=== PATIENT | male | born 1935 | race Caucasian/White ===

== ENCOUNTER 2016-11-24 06:33 | Observation (INO) ==
[2016-11-24] MEDS ORDERED: Nitroglycerin 1 INCH/GM PACKET TP ONE (06:48)
[2016-11-24] MEDS ORDERED: Aspirin 325 MG TABLET PO ONE (06:48)
--- NOTE | 2016-11-24 06:48 | Emergency Department Note ---
Disposition Clinical Impression: Chest pain Qualifiers: Chest pain type: precordial chest pain Qualified Code(s): R07.2 - Precordial pain Disposition: Admitted As Inpatient Condition: Fair Referrals: Carter Martin MD [Primary Care Provider] - Forms: ED Satisfaction Letter Chest Pain HPI - General Chief Complaint: ED Chest Pain Stated Complaint: chest pain Time Seen by Provider: 11/24/16 06:37 Source: patient Mode of arrival: private vehicle Limitations: no limitations Vital Signs Reviewed: Yes Nursing Notes Reviewed: Yes - History of Present Illness HPI Narrative: Patient reports that he had a hard time going to sleep last night he slept in a recliner. States he woke this a.m. at 0545 with midsternal chest pain described as pressure that radiated to his back. He did take some nitroglycerin with attenuation of the pain and has come for evaluation by private auto. He states his pain is easing up but he still has a little bit of pressure in his chest. He has developed a headache with the nitroglycerin. He reports slight sweat and nausea with this without shortness of breath or vomiting. He also states he felt just a little dizzy. He denies any lower extremity swelling, immobilization or injury. He denies fevers, chills, cough or abdominal complaint. He does relate that he has a history of heart disease and feel like anginal pain. He states he has had a three-way coronary artery bypass graft in 1996. His also had a subsequent stent. He states he is followed by cardiology at [facility]. 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 Denies: vomiting, dyspnea, syncope, palpitations, fever, cough, leg swelling Treatments prior to arrival chest pain: nitroglycerin - Related Data Home Medications Medication Instructions Recorded Confirmed Atorvastatin [Lipitor] 40 mg PO HS 10/11/15 11/24/16 Budesonide/Formoterol 160/4.5 1 puff IH BIDR 10/11/15 11/24/16 [Symbicort 160/4.5] Finasteride [Proscar] 5 mg PO DAILY 10/11/15 11/24/16 Gemfibrozil [Lopid] 600 mg PO QAM 10/11/15 11/24/16 Glimepiride [Amaryl] 4 mg PO DAILY 10/11/15 11/24/16 Lansoprazole [Prevacid] 30 mg PO QAM 10/11/15 11/24/16 Montelukast [Singulair] 10 mg PO DAILY 10/11/15 11/24/16 Propranolol [Inderal] 20 mg PO QAM 10/11/15 11/24/16 Rivaroxaban [Xarelto] 20 mg PO QAM 10/11/15 11/24/16 Amitriptyline [Elavil] 10 mg PO HS 12/01/15 11/24/16 GuaiFENesin/Pseudophedrine 1 each PO BID 11/24/16 11/24/16 [Mucinex D] Previous Rx's Medication Instructions Recorded Cefuroxime Axetil [Ceftin] 500 mg PO BID #10 tablet 08/23/16 Cyanocobalamin (B-12) [Vitamin B12] 1,000 mcg PO DAILY #30 tablet 08/23/16 Ferrous Sulfate 325 mg PO DAILY #30 tablet 08/23/16 Lactobacillus [Culturelle] 1 each PO BID #10 cap.sprink 08/23/16 Allergies Allergy/AdvReac Type Severity Reaction Status Date / Time No Known Allergies Allergy Verified 10/11/15 19:31 All systems ED: reviewed and negative except as stated. Chest Pain PMH - Past Medical History Medical history: Reports: atrial fibrillation, COPD, coronary artery disease, CVA, diabetes, myocardial infarction, other Surgical history: Reports: angioplasty/stent, cholecystectomy, coronary bypass ( CABG) (1980 and 1996), herniorrhaphy, prostatectomy Psychiatric history: Reports: no psych history - Social History Smoking Status: Former smoker Alcohol use: Reports: none Drug use: Reports: none Physical Exam - General Limitations: no limitations General appearance: alert, in no apparent distress - Head Head exam: atraumatic, normocephalic, normal inspection - Eye Eye exam: Present: normal appearance, PERRL, EOMI. Absent: conjunctival injection - ENT ENT exam: normal exam, normal oropharynx, mucous membranes moist - Neck Neck exam: Present: normal inspection, full ROM, trachea midline. Absent: tenderness, lymphadenopathy - Chest Chest inspection: Present: normal inspection, symmetric chest wall rise. Absent : tenderness - Respiratory Respiratory exam: Present: normal lung sounds bilaterally. Absent: respiratory distress, wheezes, prolonged expiratory phase - Cardiovascular Cardiovascular exam: Present: regular rate, normal rhythm, normal heart sounds. Absent: tachycardia, irregular rhythm, JVD - Abdominal Exam Abdominal exam: Present: soft, Non-Tender, normal bowel sounds. Absent: tenderness, distention, guarding, rebound, rigidity, mass, bruit, pulsatile mass - Extremities Exam Extremities exam: Present: normal inspection, full ROM, normal capillary refill. Absent: tenderness, pedal edema, calf tenderness - Expanded Lower Extremity Exam Neurovascular/Tendon exam: Present: normal capillary refill. Absent: motor deficit, sensory deficit, tendon deficit Gait: observed and normal - Back Exam Back exam: Present: normal inspection, full ROM. Absent: tenderness - Neurological Exam Neurological exam: Present: alert, oriented X3 - Psychiatric Psychiatric exam: Present: normal affect, normal mood - Skin Skin exam: Present: warm, dry, intact, normal color Course Course Narrative: 0658: [facility] has been contacted to assess bed availability at [place]. He has been advised that there is a significant recent bed shortage. 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 0710: [place] his call back to advise that they have no beds at [facility]. Their earliest available bed would be later this afternoon. 0730: There is no bed availability at [facility]. They are advised there is a possibility of beds becoming available in the afternoon. 0750: Dr. Cole has been contacted and has accepted this patient for observation at this facility. I have contacted to [place] to advise that he does wish to have her call him a bed becomes available and he will decide on the need for transfer at that time. 0808: [facility] bed management contacted for bed placement. Vital Signs Temperature 97.8 F 11/24/16 06:34 Pulse Rate 82 11/24/16 06:34 Respiratory Rate 18 11/24/16 06:34 Blood Pressure 197/94 11/24/16 06:34 O2 Sat by Pulse Oximetry 94 L 11/24/16 06:34 Temperature 97.8 F 11/24/16 06:40 Pulse Rate 84 11/24/16 07:36 Respiratory Rate 16 11/24/16 07:36 Blood Pressure 150/78 11/24/16 07:36 O2 Sat by Pulse Oximetry 94 L 11/24/16 07:36 Oxygen Delivery Oxygen Delivery Room Air Chest Pain - Differential Diagnosis Likely: unstable angina pectoris, atypical chest pain, costalchondritis, chest pain - Medical Records Medical records reviewed: Yes I reviewed the patient's medical records. - Lab Data Lab results reviewed: Yes I reviewed the patient's lab results. Result diagrams: 11/24/16 06:45 11/24/16 06:45 Lab Results 11/24/16 11/24/16 11/24/16 Range/Units 06:45 06:45 06:45 WBC 6.6 (4.3-11.1) K/mcL RBC 5.28 (4.19-5.50) M/mcL Hgb 14.5 (12.9-16.9) g/dL Hct 44.6 (37.5-50.1) % MCV 84.5 (83.0-100.0) fL MCH 27.5 L (28.0-33.3) pg MCHC 32.5 (31.6-35.5) g/dL RDW 14.2 (11.5-14.5) % Plt Count 195 (140-400) K/mcL MPV 9.2 L (9.4-12.4) fL Immature Gran % 0.5 (0-4) % Seg Neutrophils % 62.8 % Lymphocytes % 24.7 % Monocytes % 10.0 % Eosinophils % 1.5 % Basophils % 0.5 % Neutrophils # 4.2 (1.6-8.9) K/mcL Lymphocytes # 1.6 (0.6-4.6) K/mcL Monocytes # 0.7 (0.0-1.3) K/mcL Eosinophils # 0.1 (0.0-0.6) K/mcL Basophils # 0.0 (0.0-0.2) K/mcL PT 26.2 H (9.4-12.1) Seconds INR 2.4 APTT 43.4 H (26.0-36.0) Seconds Sodium (136-145) mEq/L Potassium (3.5-4.5) mEq/L Chloride (98-109) mEq/L Carbon Dioxide (19-29) mEq/L BUN (8-26) mg/dL Creatinine (0.72-1.25) mg/dL Est GFR ( Amer) (> 60) Est GFR (Non-Af Amer) (> 60) BUN/Creatinine Ratio (6-26) Glucose (70-99) mg/dL Calculated Osmolality (280-300) Calcium (8.6-10.8) mg/dL Troponin I (0-0.03) ng/mL B-Natriuretic Peptide 86 (0-100) pg/mL 11/24/16 11/24/16 Range/Units 06:45 06:45 WBC (4.3-11.1) K/mcL RBC (4.19-5.50) M/mcL Hgb (12.9-16.9) g/dL Hct (37.5-50.1) % MCV (83.0-100.0) fL MCH (28.0-33.3) pg MCHC (31.6-35.5) g/dL RDW (11.5-14.5) % Plt Count (140-400) K/mcL MPV (9.4-12.4) fL Immature Gran % (0-4) % Seg Neutrophils % % Lymphocytes % % Monocytes % % Eosinophils % % Basophils % % Neutrophils # (1.6-8.9) K/mcL Lymphocytes # (0.6-4.6) K/mcL Monocytes # (0.0-1.3) K/mcL Eosinophils # (0.0-0.6) K/mcL Basophils # (0.0-0.2) K/mcL PT (9.4-12.1) Seconds INR APTT (26.0-36.0) Seconds Sodium 141 (136-145) mEq/L Potassium 3.8 (3.5-4.5) mEq/L Chloride 102 (98-109) mEq/L Carbon Dioxide 28 (19-29) mEq/L BUN 7 L (8-26) mg/dL Creatinine 0.74 (0.72-1.25) mg/dL Est GFR ( Amer) > 60 (> 60) Est GFR (Non-Af Amer) > 60 (> 60) BUN/Creatinine Ratio 9 (6-26) Glucose 112 H (70-99) mg/dL Calculated Osmolality 291 (280-300) Calcium 9.3 (8.6-10.8) mg/dL Troponin I 0.02 (0-0.03) ng/mL B-Natriuretic Peptide (0-100) pg/mL - Radiology Data Radiology results reviewed: Yes I reviewed the patient's radiology results. Single view chest x-ray is performed. This does not demonstrate evidence for infiltrate, effusion or pneumothorax. Patient has some patchy increased interstitial markings consistent with possible edema. The cardiac silhouette is enlarged. I do not see abnormality to the osseous structures of the chest. This is on my interpretation. Impressions Chest X-Ray 11/24/16 06:40 IMPRESSION: Mild cardiomegaly without evidence of acute cardiopulmonary process. D/ / 11/24/2016 07:26:04 Dorian Singleton MD / [email or web address] Interpreting Provider: Dorian Singleton MD - EKG Data EKG attestation: Yes I reviewed and interpreted this EKG. EKG shows normal: sinus rhythm, intervals, QRS complexes, ST-T waves [place]/QRS: left axis deviation Interpretation: no acute changes
[2016-11-24 06:51] LABS: Basophils % 0.5 %; Eosinophils # 0.1 K/mcL (0.0-0.6); Eosinophils % 1.5 %; Hematocrit 44.6 % (37.5-50.1); Hemoglobin 14.5 g/dL (12.9-16.9); Immature Granulocytes % 0.5 % (0-4); Lymphocytes # 1.6 K/mcL (0.6-4.6); Lymphocytes % 24.7 %; Mean Corpuscular HGB Conc 32.5 g/dL (31.6-35.5); Mean Corpuscular Hemoglobin 27.5 pg (28.0-33.3); Mean Corpuscular Volume 84.5 fL (83.0-100.0); Mean Platelet Volume 9.2 fL (9.4-12.4); Monocytes # 0.7 K/mcL (0.0-1.3); Neutrophils # 4.2 K/mcL (1.6-8.9); Platelet Count 195 K/mcL (140-400); Red Blood Count 5.28 M/mcL (4.19-5.50); Red Cell Distribution Width 14.2 % (11.5-14.5); Segmented Neutrophils % 62.8 %
[2016-11-24 06:58] LABS: INR 2.4
[2016-11-24 07:01] LABS: Activated Partial Thrombo Time 43.4 Seconds (26.0-36.0)
[2016-11-24 07:05] LABS: BUN/Creatinine Ratio 9 (6-26); Blood Urea Nitrogen 7 mg/dL (8-26); Calcium 9.3 mg/dL (8.6-10.8); Carbon Dioxide 28 mEq/L (19-29); Chloride 102 mEq/L (98-109); Glucose 112 mg/dL (70-99); Osmolality,Calculated 291 (280-300); Potassium 3.8 mEq/L (3.5-4.5); Sodium 141 mEq/L (136-145); eGFR For African Americans > 60 (> 60); eGFR For Non-African Americans > 60 (> 60)
[2016-11-24 07:23] LABS: Prothrombin Time 26.2 Seconds (9.4-12.1)
[2016-11-24] MEDS ORDERED: *HR* Dextrose 50 % in Water (Syg) 50 ML SYRINGE IVP PRN (10:34)
[2016-11-24] MEDS ORDERED: GuaiFENesin/Pseudophedrine TABLET PO SCH (10:34)
[2016-11-24] MEDS ORDERED: Lactobacillus 1 EACH CAP.SPRINK PO SCH (10:34)
[2016-11-24] MEDS ORDERED: D5% in Water 1,000 ML IV PRN (10:34)
[2016-11-24] MEDS ORDERED: Finasteride 5 MG TABLET PO SCH (10:34)
[2016-11-24] MEDS ORDERED: Acetaminophen 325 MG TABLET PO PRN (10:34)
[2016-11-24] MEDS ORDERED: *HR* Glimepiride 2 MG TABLET PO SCH (10:34)
[2016-11-24] MEDS ORDERED: *HR* Rivaroxaban 10 MG TABLET PO SCH ×2 (10:34→21:00)
[2016-11-24] MEDS ORDERED: MOM Conc 10 ML UD.LIQ PO PRN (10:34)
[2016-11-24] MEDS ORDERED: Ondansetron 4 MG/2 ML VIAL IVP PRN (10:34)
[2016-11-24] MEDS ORDERED: Naloxone 0.4 MG/ML INJ IVP PRN (10:34)
[2016-11-24] MEDS ORDERED: Dextrose Gel 15 GM PO PRN ×2 (10:34)
[2016-11-24] MEDS ORDERED: Cefuroxime PO 250 MG TABLET PO SCH (10:34)
[2016-11-24] MEDS ORDERED: Cyanocobalamin (B-12) 1,000 MCG TABLET PO SCH (10:34)
[2016-11-24] MEDS ORDERED: Budesonide/Formoterol 160/4.5 MDI IH SCH (10:34)
[2016-11-24] MEDS: Insulin LISPRO 300 UNITS/3 ML VIAL SQ SCH ×2 (13:11→17:56)
--- NOTE | 2016-11-24 13:28 | Electrocardiograph Report ---
[facility] Test Date: 2016-11-24 Pat Name: Rene Ogden Department: [id number] Room: [facility] Gender: M Family Readiness Support Assistant: [id number] : 1935 Requested By: Matteo Aranda Order Number: [id number] Reading MD: Denise Guo Measurements Intervals [place] Rate: 85 P: 76 VT: 199 QRS: -31 QRSD: 84 T: 76 QT: 346 QTc: 388 Interpretive Statements SINUS RHYTHM MARKED LEFT AXIS DEVIATION NONSPECIFIC T-WAVE ABNORMALITY Electronically Signed On 11-24-16 13:26:47 EST by Denise Guo
--- NOTE | 2016-11-24 14:39 | Internal Med History&Physical ---
Date of Encounter: 11/24/16 Time of Encounter: 14:05 Assessment and Plan (1) Chest pain Current visit: Yes Status: Acute He has been admitted to [facility] floor observation status. Aspirin was given in the emergency room. Nitropaste has been ordered. Contact has been made from emergency room with [facility] for transfer when a bed is available. Repeat cardiac enzymes will be done. Qualifiers: Chest pain type: precordial chest pain Qualified Code(s): R07.2 - Precordial pain Internal Medicine - H&P: HPI Chief complaint: Chest tightness Admitted From: Home Plans for Post Hospital Care: Home History of present illness: Mr. Ogedn is a 81 year old male who came to the emergency room stating he had chest tightness onset earlier at home while in bed. He describes the tightness as being similar to previous anginal episodes. He took a nitroglycerin pill with some relief. He was evaluated in emergency room and felt to deserve admission to [facility]. He states the frequency and severity of the episodes of chest tightness have increased over the last 2 months. He has not spoken to his primary care physician or cable operator about the increased episodes. He has not missed any doses of his medications. His cardiovascular history is significant for known ASHD status post 3 vessel CABG 1980 and 4 vessel CABG 1996. He had PTCA with single stent placed at his most recent heart catheter 2005. He is not on antiplatelet agents. He has history of atrial fib/flutter and was cardioverted October 2015 at [facility] and has been maintained on Xarelto. He has remained in normal sinus rhythm. He had a left carotid endarterectomy in 2014. He denies hypertension [place] heart failure DVT or pulmonary embolus. Past Med Surg Social Fam HX - Past Medical History Medical history: atrial fibrillation, COPD, coronary artery disease, CVA, diabetes, myocardial infarction, other Psychiatric history: no psych history - Past Surgical History Surgical History: angioplasty/stent, cholecystectomy, coronary bypass (CABG), herniorrhaphy, prostatectomy - Social History Smoking Status: Former smoker Smokeless Tobacco Status: No Alcohol use: none Drug use: none - Family History Mother Living Status: Hx Family Cardiac Disorders: Yes Internal Medicine - H&P: Meds Atorvastatin [Lipitor] 40 mg PO HS 10/11/15 [History] Budesonide/Formoterol 160/4.5 [Symbicort 160/4.5] 1 puff IH BIDR 10/11/15 [ History] Finasteride [Proscar] 5 mg PO DAILY 10/11/15 [History] Gemfibrozil [Lopid] 600 mg PO QAM 10/11/15 [History] Glimepiride [Amaryl] 4 mg PO DAILY 10/11/15 [History] Lansoprazole [Prevacid] 30 mg PO QAM 10/11/15 [History] Montelukast [Singulair] 10 mg PO DAILY 10/11/15 [History] Propranolol [Inderal] 20 mg PO QAM 10/11/15 [History] Rivaroxaban [Xarelto] 20 mg PO QAM 10/11/15 [History] Amitriptyline [Elavil] 10 mg PO HS 12/01/15 [History] Cefuroxime Axetil [Ceftin] 500 mg PO BID #10 tablet 08/23/16 [Rx] Cyanocobalamin (B-12) [Vitamin B12] 1,000 mcg PO DAILY #30 tablet 08/23/16 [Rx] Ferrous Sulfate 325 mg PO DAILY #30 tablet 08/23/16 [Rx] Lactobacillus [Culturelle] 1 each PO BID #10 cap.sprink 08/23/16 [Rx] GuaiFENesin/Pseudophedrine [Mucinex D] 1 each PO BID 11/24/16 [History] Allergies No Known Allergies Allergy (Verified 10/11/15 19:31) All Systems PM: A 10-system review of systems was performed and is negative for pertinent findings except as documented above in the HPI. Review of systems: Gen.: His weight has been stable since the November 2015 [facility] hospitalization at approximately 96 kg. Cardiovascular: As per history of present illness Respiratory: He smoked from age [age] up to 2 packs per day. He has oxygen at home but does not wear it regularly. He had pulmonary function tests December 2015 which showed severe COPD. FEV1/FVC was 50%. His FEV1 had significant improvement postbronchodilator. He had elevated RV consistent with air trapping. His DLCO was 28% corrected. GI: He has had cholecystectomy. He has GERD but denies disorders of his liver or exocrine pancreas : He has had stones in his kidney and bladder in the past. He has BPH. 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 He denies other large distribution strokes or seizures. He has benign essential tremor. Endocrine: He was diagnosed with DM 2 approximately 1984. Hemoglobin A1c was 8.0% November 2015. He has hyperlipidemia but no known thyroid disease Hematology/oncology: He denies blood disorders cancers or anemia Psychiatric: Denies anxiety depression or other mental health issues [place] skeletal: Has history of gout but denies other bone joint or muscle disorders. - Constitutional Vitals: Temp Pulse Resp BP Pulse Ox 98.2 F 75 14 154/70 95 11/24/16 11:01 11/24/16 11:01 11/24/16 12:09 11/24/16 11:01 11/24/16 12:09 Exam: Gen.: He is a well-developed well-nourished male who appears in no severe distress at present time. He denies chest discomfort at this time HEENT: Head is atraumatic and normocephalic. Eyes: EOMI. There is no scleral icterus. Mouth: Mucosa is moist. Neck: Supple and nontender. There is no thyromegaly or adenopathy noted. Heart: Regular without murmurs gallops or ectopics. Lungs: No wheezes or crackles heard. Abdomen: Soft and nontender. No masses or guarding are noted. Extremities: There is no cyanosis edema or clubbing noted. Dorsalis pedis and posterior tibial pulses are rates to 1+ palpable bilaterally. Neurologic: Mental status: He is talkative and a good historian. Cranial nerves : Smile is symmetric. Forehead wrinkles bilaterally. Tongue protrudes midline. EOMI. Motor: There is no pronator drift. Cerebellar: Finger to nose is intact bilaterally. Skin: Warm and dry. Internal Med - H&P Results - Labs CBC & Chem 7: 11/24/16 06:45 11/24/16 06:45
[2016-11-24 18:41] VITALS: BP 170/72
--- NOTE | 2016-11-25 12:15 | Discharge Summary ---
Date of Encounter: 11/25/16 Time of Encounter: 12:13 - Discharge Diagnosis (1) Chest pain Priority: Primary Status: Acute Qualifiers: Chest pain type: precordial chest pain Qualified Code(s): R07.2 - Precordial pain - Discharge Medications Home Medications: Atorvastatin [Lipitor] 40 mg PO HS 10/11/15 [History] Budesonide/Formoterol 160/4.5 [Symbicort 160/4.5] 1 puff IH BIDR 10/11/15 [ History] Finasteride [Proscar] 5 mg PO DAILY 10/11/15 [History] Gemfibrozil [Lopid] 600 mg PO QAM 10/11/15 [History] Glimepiride [Amaryl] 4 mg PO DAILY 10/11/15 [History] Lansoprazole [Prevacid] 30 mg PO QAM 10/11/15 [History] Montelukast [Singulair] 10 mg PO DAILY 10/11/15 [History] Propranolol [Inderal] 20 mg PO QAM 10/11/15 [History] Rivaroxaban [Xarelto] 20 mg PO QAM 10/11/15 [History] Amitriptyline [Elavil] 10 mg PO HS 12/01/15 [History] Cefuroxime Axetil [Ceftin] 500 mg PO BID #10 tablet 08/23/16 [Rx] Cyanocobalamin (B-12) [Vitamin B12] 1,000 mcg PO DAILY #30 tablet 08/23/16 [Rx] Ferrous Sulfate 325 mg PO DAILY #30 tablet 08/23/16 [Rx] Lactobacillus [Culturelle] 1 each PO BID #10 cap.sprink 08/23/16 [Rx] GuaiFENesin/Pseudophedrine [Mucinex D] 1 each PO BID 11/24/16 [History] Allergies/Adverse Reactions: Allergies No Known Allergies Allergy (Verified 10/11/15 19:31) Date of admission: 11/24/16 08:49 Primary care physician: Carter Martin MD Consults: 11/24/16 12:51 Consult to Waste Collection Driver [CONS] Routine Reason for SW Consult: financial concerns - Patient Status Disposition: Transfer Critical Access Hosp Condition: Fair - Discharge Instructions Follow Up With: Carter Martin MD [Primary Care Provider] - 1 week Hospital course: Mr. Ogden is a 81 year old male who came to the emergency room stating he had chest tightness onset earlier at home while in bed. He describes the tightness as being similar to previous anginal episodes. He took a nitroglycerin pill with some relief. He was evaluated in emergency room and felt to deserve admission to [facility]. Initial orders were written by the emergency room physician. I saw him on November 24 and performed a history and physical. Repeat cardiac enzymes showed no evidence of myocardial damage. I felt his chest pain was likely due to myocardial ischemia. Notification was received the late afternoon of November 24 that a bed was available at [facility] for [facility]. He will be transferred there for further evaluation and treatment. - Time Spent with Patient Total time spent providing and/or coordinating discharge services: - Constitutional Vitals: Temp Pulse Resp BP Pulse Ox 97.9 F 64 18 170/72 92 L 11/24/16 18:36 11/24/16 18:36 11/24/16 18:36 11/24/16 18:36 11/24/16 18:36
== END 2016-11-24 19:39 | disposition short-term general hospital (02) ==
LOC: EMEROOPIK 06:33 → INPPIK 06:33
PROVIDERS: ADMIT Internal Medicine; ATTEND Internal Medicine

== ENCOUNTER 2018-05-24 14:03 | Observation (INO) ==
[2018-05-24] MEDS ORDERED: methylPREDNISolone 125 MG/2 ML VIAL IVP ONE (14:35)
[2018-05-24] MEDS ORDERED: Albuterol 2.5 MG/3 ML NEBULIZER IH ONE (14:35)
--- NOTE | 2018-05-24 14:37 | Emergency Department Note ---
Disposition Clinical Impression: COPD (chronic obstructive pulmonary disease) with acute bronchitis Pneumonia Qualifiers: Pneumonia type: due to unspecified organism Laterality: left Lung location: lower lobe of lung Qualified Code(s): J18.1 - Lobar pneumonia, unspecified organism Disposition: Admitted As Inpatient Condition: Undetermined Time of Disposition: 15:30 (Dr Cole accepted him) SOB HPI - General Chief Complaint: ED Shortness of Breath/Dyspnea Stated Complaint: cough, h/o pneumonia Source: patient, family Limitations: no limitations - History of Present Illness Patient is a pleasant with past medical history significant for HTN, CAD, CABG , several stents, Dyslipidemia and COPD recent Dx of PNE who is presenting to [facility] Emergency Room with a chief complaint off SOB and cough as well as LE swelling. His PCP Dr Ulrich was concerned about CHF exacerbation so he prompted him to be eval at the ER. Pt is taking Doxycycline and steroids. He states that the cough is with clear phlegm and the attacks come in clusters and wouldnt stop that makes him tired. He denies CP but has tightness. He has weakness but no other symptoms. Patient denies any fever or chills. Pt also denies any eye pain or visual disturbances. There is no sore throat or facial or nasal congestion. There is no racing heat. There is no abdominal pain, nausea, vomiting or diarrhea. No dysuria or flank pain. There is no muskulo- skeletal pain, arthralgia or back pain. Patient also denies rash or pruritus. There is no neurological manifestations, no headache, no vertigo or weakness but FATIGUED. The patient also denies any depression, hallucinations and there are no homicidal or suicidal ideations. There is no polyuria or polydipsia. There is no easy bruising or bleeding. Review of other systems is otherwise negative except above. Pt Subjective Complaint: shortness of breath, cough, pain with inspiration Onset (ago): day(s) Context: recent illness Severity: moderate Consistency/Duration: intermittent Improves with: rest, bronchodilators Known history of: COPD - Related Data Home Medications Medication Instructions Recorded Confirmed Atorvastatin [Lipitor] 40 mg PO HS 10/11/15 05/24/18 Finasteride [Proscar] 5 mg PO DAILY 10/11/15 05/24/18 Glimepiride [Amaryl] 4 mg PO DAILY 10/11/15 05/24/18 Montelukast [Singulair] 10 mg PO DAILY 10/11/15 05/24/18 Clopidogrel [Plavix] 75 mg PO DAILY 07/15/17 05/24/18 Nitroglycerin [Nitrostat] 0.4 mg PO Q5-6MIN PRN 07/15/17 05/24/18 Roflumilast [Daliresp] 500 mcg PO DAILY 07/15/17 05/24/18 Oxygen 1 each .ROUTE AD PRN 10/21/17 05/24/18 Aspirin [Lo-Dose Aspirin EC] 81 mg PO DAILY 03/02/18 05/24/18 Budesonide/Formoterol 160/4.5 2 puff IH BIDR 03/02/18 05/24/18 [Symbicort 160/4.5] Furosemide [Lasix] 40 mg PO DAILY 03/02/18 05/24/18 Guaifenesin [Mucinex] 600 mg PO Q12H 03/02/18 05/24/18 Insulin NPH Hum/Reg Insulin Hm 10 unit SQ BID 03/02/18 05/24/18 [Humulin 70/30 Kwikpen] Omeprazole [PriLOSEC] 20 mg PO DAILY 03/02/18 05/24/18 Potassium Chloride 20 meq PO DAILY 03/02/18 05/24/18 Sotalol [Betapace] 80 mg PO Q12HR 03/02/18 05/24/18 Doxycycline 100 mg PO BID 05/24/18 05/24/18 Dulera 200 Mcg/5 Mcg Inhaler 05/24/18 OXcarbazepine [Trileptal] 150 mg PO BID 05/24/18 05/24/18 Quetiapine Fumarate [SEROquel] 25 mg PO HS 05/24/18 05/24/18 clonazePAM [Clonazepam] 0.25 mg PO BID 05/24/18 05/24/18 predniSONE [PredniSONE] 10 mg PO DAILY 05/24/18 05/24/18 Allergies Allergy/AdvReac Type Severity Reaction Status Date / Time No Known Allergies Allergy Verified 05/14/18 16:07 All systems ED: reviewed and negative except as stated. Review of Systems: As Per HPI Constitutional: Denies: fever, chills, weakness Eyes: Denies: eye pain, eye discharge, vision change ENT ED: Denies: ear pain, throat pain, dental pain Cardiovascular: Reports: dyspnea on exertion. Denies: chest pain, palpitations Respiratory: Reports: cough, dyspnea, wheezes Gastrointestinal: Denies: abdominal pain, nausea, vomiting Genitourinary: Denies: urgency, dysuria, frequency Musculoskeletal: Denies: back pain, neck pain, joint swelling Past Medical History - Past Medical History Medical history: Reports: COPD, coronary artery disease, CVA, diabetes, GERD, hyperlipidemia, hypertension Surgical history: Reports: angioplasty/stent, cholecystectomy, coronary bypass ( CABG), herniorrhaphy, prostatectomy Psychiatric history: Reports: anxiety - Social History Smoking Status: Never smoker Smokeless Tobacco Status: No Alcohol use: Reports: none Drug use: Reports: none Physical Exam - General Limitations: no limitations General appearance: alert, in no apparent distress - Head Head exam: atraumatic, normocephalic, normal inspection - Eye Eye exam: Present: normal appearance, PERRL, EOMI - Expanded Eye Exam Pupils: Left: reactive - ENT ENT exam: normal exam, normal oropharynx, mucous membranes moist - Expanded ENT Exam External ear exam: Present: normal external inspection Mouth exam: Present: normal external inspection Teeth exam: Present: normal inspection Throat exam: Present: normal inspection - Neck Neck exam: Present: normal inspection, full ROM, trachea midline - Chest Chest inspection: Present: normal inspection, symmetric chest wall rise - Respiratory Respiratory exam: Present: normal lung sounds bilaterally, wheezes, prolonged expiratory phase, other (Scattered rhonchi and wheezes especially on the posterior lobes) - Cardiovascular Cardiovascular exam: Present: regular rate, normal rhythm, normal heart sounds - Abdominal Exam Abdominal exam: Present: soft, Non-Tender. Absent: tenderness, distention, guarding, rebound, rigidity - Extremities Exam Extremities exam: Present: normal inspection, full ROM. Absent: tenderness, pedal edema - Expanded Upper Extremity Exam Shoulder exam: Present: normal inspection, full ROM Arm exam: Present: normal inspection, full ROM Elbow exam: Present: normal inspection, full ROM Forearm/Wrist exam: Present: normal inspection, full ROM Hand exam: Present: normal inspection, full ROM Vascular exam: Normal: capillary refill, radial pulse - Expanded Lower Extremity Exam Hip/Pelvis exam: Present: normal inspection, full ROM Upper leg exam: Present: normal inspection, full ROM Knee exam: Present: normal inspection, full ROM Lower leg exam: Present: normal inspection, full ROM Ankle exam: Present: normal inspection, full ROM Foot/toe exam: Present: normal inspection, full ROM, swelling, other (Pedal edema extending to the mid leg) Neurovascular/Tendon exam: Absent: motor deficit, sensory deficit, tendon deficit - Back Exam Back exam: Present: normal inspection, full ROM. Absent: tenderness - Neurological Exam Neurological exam: Present: alert, oriented X3 - Expanded Neurological Exam Patient oriented to: Present: person, place, time Coma Scale Eye Opening: Spontaneous Coma Scale Motor Response: Obeys Commands Coma Scale Verbal Response: Oriented Coma Scale Total: 15 - Psychiatric Psychiatric exam: Present: normal affect, normal mood - Skin Skin exam: Present: warm, dry, intact, normal color Course Course Narrative: Cardiopulmonary monitoring Stat DuoNeb Stat steroids Stat a cappella/ chest physiotherapy STAT Ceftriaxone and Zithromax Vital Signs Temperature 97.7 F 05/24/18 14:05 Pulse Rate 57 05/24/18 14:05 Respiratory Rate 19 05/24/18 14:05 Blood Pressure 153/74 05/24/18 14:05 O2 Sat by Pulse Oximetry 95 05/24/18 14:05 Temperature 97.7 F 05/24/18 14:05 Pulse Rate 54 05/24/18 15:16 Respiratory Rate 18 05/24/18 15:16 Blood Pressure 151/67 05/24/18 15:16 O2 Sat by Pulse Oximetry 94 05/24/18 15:16 Oxygen Delivery Oxygen Delivery Room Air Shortness of Breath/Dyspnea - Differential Diagnosis Likely: congestive heart failure, pneumonia, asthma with exacerbation, pneumothorax - Medical Records Medical records reviewed: Yes I reviewed the patient's medical records. - Lab Data Lab results reviewed: Yes I reviewed the patient's lab results. Result diagrams: 05/24/18 14:55 05/24/18 14:55 Lab Results 05/24/18 05/24/18 05/24/18 Range/Units 14:55 14:55 14:55 WBC 10.5 (4.3-11.1) K/mcL RBC 5.53 H (4.19-5.50) M/mcL Hgb 14.3 (12.9-16.9) g/dL Hct 45.1 (37.5-50.1) % MCV 81.6 L (83.0-100.0) fL MCH 25.9 L (28.0-33.3) pg MCHC 31.7 (31.6-35.5) g/dL RDW 15.6 H (11.5-14.5) % Plt Count 260 (140-400) K/mcL MPV 9.3 L (9.4-12.4) fL Immature Gran % 1.0 (0-4) % Seg Neutrophils % 69.4 % Lymphocytes % 18.9 % Monocytes % 9.8 % Eosinophils % 0.7 % Basophils % 0.2 % Neutrophils # 7.3 (1.6-8.9) K/mcL Lymphocytes # 2.0 (0.6-4.6) K/mcL Monocytes # 1.0 (0.0-1.3) K/mcL Eosinophils # 0.1 (0.0-0.6) K/mcL Basophils # 0.0 (0.0-0.2) K/mcL PT (9.4-12.1) Seconds INR APTT (26.0-36.0) Seconds Sample Site ABG pH (7.32-7.45) pH Units ABG pCO2 (35-45) mmHg ABG pO2 (85-104) mmHg ABG HCO3 (21-27) mEq/L ABG Total CO2 (20-26) mEq/L ABG O2 Saturation (95-98) % ABG Base Excess (-2 to 3) mEq/L Louis Test O2 Delivery Device Sodium 136 (136-145) mEq/L Potassium 3.8 (3.5-5.1) mEq/L Chloride 97 L (98-107) mEq/L Carbon Dioxide 33 H (23-29) mEq/L BUN 13 (8-23) mg/dL Creatinine 0.79 (0.70-1.30) mg/dL Est GFR ( Amer) > 60 (> 60) Est GFR (Non-Af Amer) > 60 (> 60) BUN/Creatinine Ratio 16 (6-26) Glucose 200 H (70-105) mg/dL Calculated Osmolality 288 (280-300) Lactic Acid 3.0 H (0.5-2.2) mmol/L Calcium 9.0 (8.6-10.3) mg/dL Total Bilirubin 0.5 (0.3-1.0) mg/dL Direct Bilirubin 0.0 (0.0-0.2) mg/dL Indirect Bilirubin 0.5 (0.0-1.2) mg/dL AST 14 (13-39) Units/L ALT 18 (7-52) Units/L Alkaline Phosphatase 81 (34-104) Units/L Troponin I < 0.03 (< 0.04) ng/mL B-Natriuretic Peptide (Less than 100) pg/mL Serum Total Protein 6.1 L (6.4-8.9) g/dL Albumin 3.5 (3.5-5.7) g/dL Globulin 2.6 (2.4-3.5) g/dL Albumin/Globulin Ratio 1.3 (1.1-2.2) Urine Color (Yellow) Urine Clarity (Clear) Urine pH (5.0-8.0) pH Units Ur Specific [place] (1.010-1.025) Urine Protein (Neg-Trace) mg/dL Urine Glucose (UA) (Normal) mg/dL Urine Ketones (Negative) mg/dL Urine Blood (Negative) Urine Nitrite (Negative) Urine Bilirubin (Negative) Urine Urobilinogen (Normal) mg/dL Ur Leukocyte Esterase (Negative) Ur Culture Indicated? (NO) 05/24/18 05/24/18 05/24/18 Range/Units 14:55 14:55 15:05 WBC (4.3-11.1) K/mcL RBC (4.19-5.50) M/mcL Hgb (12.9-16.9) g/dL Hct (37.5-50.1) % MCV (83.0-100.0) fL MCH (28.0-33.3) pg MCHC (31.6-35.5) g/dL RDW (11.5-14.5) % Plt Count (140-400) K/mcL MPV (9.4-12.4) fL Immature Gran % (0-4) % Seg Neutrophils % % Lymphocytes % % Monocytes % % Eosinophils % % Basophils % % Neutrophils # (1.6-8.9) K/mcL Lymphocytes # (0.6-4.6) K/mcL Monocytes # (0.0-1.3) K/mcL Eosinophils # (0.0-0.6) K/mcL Basophils # (0.0-0.2) K/mcL PT 11.4 (9.4-12.1) Seconds INR 1.0 APTT 29.6 (26.0-36.0) Seconds Sample Site R Radial ABG pH 7.45 (7.32-7.45) pH Units ABG pCO2 46 H (35-45) mmHg ABG pO2 64 L (85-104) mmHg ABG HCO3 32 H (21-27) mEq/L ABG Total CO2 33 H (20-26) mEq/L ABG O2 Saturation 93 L (95-98) % ABG Base Excess 7 H (-2 to 3) mEq/L Louis Test Positive O2 Delivery Device Room Air Sodium (136-145) mEq/L Potassium (3.5-5.1) mEq/L Chloride (98-107) mEq/L Carbon Dioxide (23-29) mEq/L BUN (8-23) mg/dL Creatinine (0.70-1.30) mg/dL Est GFR ( Amer) (> 60) Est GFR (Non-Af Amer) (> 60) BUN/Creatinine Ratio (6-26) Glucose (70-105) mg/dL Calculated Osmolality (280-300) Lactic Acid (0.5-2.2) mmol/L Calcium (8.6-10.3) mg/dL Total Bilirubin (0.3-1.0) mg/dL Direct Bilirubin (0.0-0.2) mg/dL Indirect Bilirubin (0.0-1.2) mg/dL AST (13-39) Units/L ALT (7-52) Units/L Alkaline Phosphatase (34-104) Units/L Troponin I (< 0.04) ng/mL B-Natriuretic Peptide 110 H (Less than 100) pg/mL Serum Total Protein (6.4-8.9) g/dL Albumin (3.5-5.7) g/dL Globulin (2.4-3.5) g/dL Albumin/Globulin Ratio (1.1-2.2) Urine Color (Yellow) Urine Clarity (Clear) Urine pH (5.0-8.0) pH Units Ur Specific [place] (1.010-1.025) Urine Protein (Neg-Trace) mg/dL Urine Glucose (UA) (Normal) mg/dL Urine Ketones (Negative) mg/dL Urine Blood (Negative) Urine Nitrite (Negative) Urine Bilirubin (Negative) Urine Urobilinogen (Normal) mg/dL Ur Leukocyte Esterase (Negative) Ur Culture Indicated? (NO) 05/24/18 Range/Units 15:40 WBC (4.3-11.1) K/mcL RBC (4.19-5.50) M/mcL Hgb (12.9-16.9) g/dL Hct (37.5-50.1) % MCV (83.0-100.0) fL MCH (28.0-33.3) pg MCHC (31.6-35.5) g/dL RDW (11.5-14.5) % Plt Count (140-400) K/mcL MPV (9.4-12.4) fL Immature Gran % (0-4) % Seg Neutrophils % % Lymphocytes % % Monocytes % % Eosinophils % % Basophils % % Neutrophils # (1.6-8.9) K/mcL Lymphocytes # (0.6-4.6) K/mcL Monocytes # (0.0-1.3) K/mcL Eosinophils # (0.0-0.6) K/mcL Basophils # (0.0-0.2) K/mcL PT (9.4-12.1) Seconds INR APTT (26.0-36.0) Seconds Sample Site ABG pH (7.32-7.45) pH Units ABG pCO2 (35-45) mmHg ABG pO2 (85-104) mmHg ABG HCO3 (21-27) mEq/L ABG Total CO2 (20-26) mEq/L ABG O2 Saturation (95-98) % ABG Base Excess (-2 to 3) mEq/L Louis Test O2 Delivery Device Sodium (136-145) mEq/L Potassium (3.5-5.1) mEq/L Chloride (98-107) mEq/L Carbon Dioxide (23-29) mEq/L BUN (8-23) mg/dL Creatinine (0.70-1.30) mg/dL Est GFR ( Amer) (> 60) Est GFR (Non-Af Amer) (> 60) BUN/Creatinine Ratio (6-26) Glucose (70-105) mg/dL Calculated Osmolality (280-300) Lactic Acid (0.5-2.2) mmol/L Calcium (8.6-10.3) mg/dL Total Bilirubin (0.3-1.0) mg/dL Direct Bilirubin (0.0-0.2) mg/dL Indirect Bilirubin (0.0-1.2) mg/dL AST (13-39) Units/L ALT (7-52) Units/L Alkaline Phosphatase (34-104) Units/L Troponin I (< 0.04) ng/mL B-Natriuretic Peptide (Less than 100) pg/mL Serum Total Protein (6.4-8.9) g/dL Albumin (3.5-5.7) g/dL Globulin (2.4-3.5) g/dL Albumin/Globulin Ratio (1.1-2.2) Urine Color Yellow (Yellow) Urine Clarity Clear (Clear) Urine pH 6.0 (5.0-8.0) pH Units Ur Specific [place] 1.010 (1.010-1.025) Urine Protein Negative (Neg-Trace) mg/dL Urine Glucose (UA) Normal (Normal) mg/dL Urine Ketones Negative (Negative) mg/dL Urine Blood Negative (Negative) Urine Nitrite Negative (Negative) Urine Bilirubin Negative (Negative) Urine Urobilinogen Normal (Normal) mg/dL Ur Leukocyte Esterase Negative (Negative) Ur Culture Indicated? NO (NO) - Radiology Data Radiology results reviewed: Yes I reviewed the patient's radiology results. - EKG Data EKG attestation: Yes I reviewed and interpreted this EKG. EKG shows normal: Reports: sinus rhythm Critical Care Time Critical Care Time: Yes Total Critical Care Time: 45 Attestation: I attest to the above critical time
[2018-05-24] MEDS ORDERED: cefTRIAXone 2,000 MG in Water for inj. (sterile) 20 ML 20 ML IVP ONE (14:53)
[2018-05-24] MEDS ORDERED: Azithromycin 500 MG in D5% in Water 250 ML IVPB ONE (14:53)
[2018-05-24 15:02] LABS: Basophils % 0.2 %; Eosinophils # 0.1 K/mcL (0.0-0.6); Eosinophils % 0.7 %; Hematocrit 45.1 % (37.5-50.1); Hemoglobin 14.3 g/dL (12.9-16.9); Lymphocytes % 18.9 %; Mean Corpuscular HGB Conc 31.7 g/dL (31.6-35.5); Mean Corpuscular Hemoglobin 25.9 pg (28.0-33.3); Mean Corpuscular Volume 81.6 fL (83.0-100.0); Mean Platelet Volume 9.3 fL (9.4-12.4); Monocytes % 9.8 %; Neutrophils # 7.3 K/mcL (1.6-8.9); Platelet Count 260 K/mcL (140-400); Red Blood Count 5.53 M/mcL (4.19-5.50); Red Cell Distribution Width 15.6 % (11.5-14.5); Segmented Neutrophils % 69.4 %
[2018-05-24 15:09] LABS: ABG Base Excess 7 mEq/L (-2 to 3); ABG HCO3 32 mEq/L (21-27); ABG Oxygen Saturation 93 % (95-98); ABG PCO2 46 mmHg (35-45); ABG PH 7.45 pH Units (7.32-7.45); ABG PO2 64 mmHg (85-104); ABG TCO2 33 mEq/L (20-26)
[2018-05-24 15:10] LABS: Prothrombin Time 11.4 Seconds (9.4-12.1)
[2018-05-24 15:13] LABS: Activated Partial Thrombo Time 29.6 Seconds (26.0-36.0)
[2018-05-24 15:18] LABS: Alanine Aminotransferase 18 Units/L (7-52); Albumin 3.5 g/dL (3.5-5.7); Albumin/Globulin Ratio 1.3 (1.1-2.2); Alkaline Phosphatase 81 Units/L (34-104); Aspartate Amino Transferase 14 Units/L (13-39); BUN/Creatinine Ratio 16 (6-26); Bilirubin,Indirect 0.5 mg/dL (0.0-1.2); Bilirubin,Total 0.5 mg/dL (0.3-1.0); Blood Urea Nitrogen 13 mg/dL (8-23); Carbon Dioxide 33 mEq/L (23-29); Chloride 97 mEq/L (98-107); Globulin 2.6 g/dL (2.4-3.5); Glucose 200 mg/dL (70-105); Osmolality,Calculated 288 (280-300); Potassium 3.8 mEq/L (3.5-5.1); Sodium 136 mEq/L (136-145); Total Protein 6.1 g/dL (6.4-8.9); eGFR For African Americans > 60 (> 60); eGFR For Non-African Americans > 60 (> 60)
[2018-05-24 15:27] LABS: Troponin I < 0.03 ng/mL (< 0.04)
[2018-05-24] MEDS ORDERED: Naloxone 0.4 MG/ML INJ IVP PRN ×2 (15:37→16:21)
[2018-05-24 15:46] LABS: Bilirubin,Urine Negative (Negative); Blood,Urine Negative (Negative); Clarity,Urine Clear (Clear); Color,Urine Yellow (Yellow); Glucose,Urine (UA) Normal (Normal); Ketones,Urine Negative (Negative); Leukocyte Esterase,Urine Negative (Negative); Nitrite,Urine Negative (Negative); Protein,Urine Negative (Neg-Trace); Urobilinogen,Urine Normal (Normal)
--- NOTE | 2018-05-24 20:08 | Internal Med History&Physical ---
Date of Encounter: 05/24/18 Time of Encounter: 19:35 Assessment and Plan (1) COPD (chronic obstructive pulmonary disease) with acute bronchitis Current visit: Yes Status: Acute He was given Rocephin and Zithromax in emergency room with Solu-Medrol. Antibiotics will be continued with lactobacillus. Chest CT will be done to further evaluate. (2) Microcytosis Current visit: Yes Status: Acute Will order iron studies in a.m. (3) Low vitamin B12 level Current visit: Yes Status: Acute B12 level was low at 184 on 08/22/2016. Recheck in a.m. (4) Paroxysmal atrial fibrillation Current visit: No Status: Acute Continue sotalol (5) Anxiety and depression Current visit: Yes Status: Chronic Continue Trileptal, Seroquel, and Klonopin. Internal Medicine - H&P: HPI Admitted From: Emergency Dept (Cough and dyspnea) Plans for Post Hospital Care: Home History of present illness: Mr. Ogden is a 82 year old male who came to emergency room stating he had 10-14 day history of cough and dyspnea. The cough was initially productive of yellow mucus but later change to white. He had minimal fevers. He denies hemoptysis He had no vomiting or diarrhea. He went to a local urgent care shortly after onset of symptoms and received prescription for antibiotics. He followed up at his PCP office a few days later and was given a prescription for different antibiotics and prednisone. When he did not feel improved today he called his PCP office and was directed to come to emergency room. He was evaluated and admitted for ongoing care needs. Respiratory history is significant for having smoked from age [age] up to 2 packs per day. He has oxygen at home but does not wear it regularly. He had pulmonary function tests December 2015 which showed severe COPD. FEV1/FVC was 50%. His FEV1 had significant improvement postbronchodilator. He had elevated RV consistent with air trapping. His DLCO was 28% corrected. Past Med Surg Social Fam HX - Past Medical History Medical history: COPD, coronary artery disease, CVA, diabetes, GERD, hyperlipidemia, hypertension Additional medical history: HAD A NOSE BLEED WHILE HE WAS IN [place] WHICH WAS CAUTERIZED. HAD AN EPISODE THIS PM. MULTIPLE CARDIAC BYPASSES, SEVERAL CARDIAC STENTS Psychiatric history: anxiety - Past Surgical History Surgical History: angioplasty/stent, cholecystectomy, coronary bypass (CABG), herniorrhaphy, prostatectomy Additional surgical history: Prostate surgery x 2 - Social History Smoking Status: Never smoker Smokeless Tobacco Status: No Alcohol use: none Drug use: none - Family History Mother Living Status: Hx Family Cardiac Disorders: Yes Internal Medicine - H&P: Meds Atorvastatin [Lipitor] 40 mg PO HS 10/11/15 [History] Finasteride [Proscar] 5 mg PO DAILY 10/11/15 [History] Glimepiride [Amaryl] 4 mg PO DAILY 10/11/15 [History] Montelukast [Singulair] 10 mg PO DAILY 10/11/15 [History] Clopidogrel [Plavix] 75 mg PO DAILY 07/15/17 [History] Nitroglycerin [Nitrostat] 0.4 mg PO Q5-6MIN PRN 07/15/17 [History] Roflumilast [Daliresp] 500 mcg PO DAILY 07/15/17 [History] Oxygen 1 each .ROUTE AD PRN 10/21/17 [History] Aspirin [Lo-Dose Aspirin EC] 81 mg PO DAILY 03/02/18 [History] Budesonide/Formoterol 160/4.5 [Symbicort 160/4.5] 2 puff IH BIDR 03/02/18 [ History] Furosemide [Lasix] 40 mg PO DAILY 03/02/18 [History] Guaifenesin [Mucinex] 600 mg PO Q12H 03/02/18 [History] Insulin NPH Hum/Reg Insulin Hm [Humulin 70/30 Kwikpen] 10 unit SQ BID 03/02/18 [ History] Omeprazole [PriLOSEC] 20 mg PO DAILY 03/02/18 [History] Potassium Chloride 20 meq PO DAILY 03/02/18 [History] Sotalol [Betapace] 80 mg PO Q12HR 03/02/18 [History] Doxycycline 100 mg PO BID 05/24/18 [History] Dulera 200 Mcg/5 Mcg Inhaler 05/24/18 [History] OXcarbazepine [Trileptal] 150 mg PO BID 05/24/18 [History] Quetiapine Fumarate [SEROquel] 25 mg PO HS 05/24/18 [History] clonazePAM [Clonazepam] 0.25 mg PO BID 05/24/18 [History] predniSONE [PredniSONE] 10 mg PO DAILY 05/24/18 [History] 3 Allergy/AdvReac Type Severity Reaction Status Date / Time No Known Allergies Allergy Verified 05/14/18 16:07 All Systems PM: A 10-system review of systems was performed and is negative for pertinent findings except as documented above in the HPI. Review of systems: Review of systems from November 2016 [facility] hospitalization were reviewed and revised as below. Gen.: His weight has been stable since the November 2015 [facility] hospitalization at approximately 96 kg. Cardiovascular: He has history of hypertension and known ASHD status post 3 vessel CABG 1980 and 4 vessel CABG 1996. He had PTCA with single stent placed 2005. Most recent heart catheter was November 2016 at [facility] without intervention done. He was told he had adequate collaterals. He has history of atrial fib/flutter and was cardioverted October 2015 at [facility] and was maintained on Xarelto for a while. He states Xarelto was discontinued during a September 2017 hospitalization in [place] for congestive heart failure and pneumonia. His [place] wrister did not restart anticoagulation and he remains on Plavix and aspirin. He has remained in normal sinus rhythm. He had a left carotid endarterectomy in 2014. He denies NH heart failure DVT or pulmonary embolus. Respiratory: As per history of present illness GI: He has had cholecystectomy. He has GERD but denies disorders of his liver or exocrine pancreas : He has had stones in his kidney and bladder in the past. He has BPH. 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 He denies other large distribution strokes or seizures. He has benign essential tremor. Endocrine: He was diagnosed with DM 2 approximately 1984. Hemoglobin A1c was 8.0% November 2015. He has hyperlipidemia but no known thyroid disease Hematology/oncology: He denies blood disorders cancers or anemia Psychiatric: He was hospitalized at [facility] behavioral unit a few months ago for anxiety and depression. [place] skeletal: Has history of gout but denies other bone joint or muscle disorders. - Constitutional Vitals: Temp Pulse Resp BP Pulse Ox 97.7 F 63 18 125/56 90 05/24/18 19:01 05/24/18 19:01 05/24/18 19:01 05/24/18 19:01 05/24/18 19:01 Exam: Gen.: He is a well-developed well-nourished male sitting on the side of bed who appears dyspneic and occasionally coughs. HEENT: Head is atraumatic and normocephalic. Eyes: EOMI. There is no scleral icterus. Mouth: Mucosa is moist. Neck: Supple and nontender. There is no thyromegaly or adenopathy noted. Heart: Regular without murmurs gallops or ectopics Lungs: No wheezes crackles or egophony are heard. Abdomen: Soft and nontender. No masses or guarding are noted. Extremities: There is no cyanosis edema or clubbing noted. Dorsalis pedis and posterior tibial pulses are trace palpable bilaterally. He has onychomycosis of several toenails. 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 Neurologic: Mental status: He is talkative and a good historian. Cranial nerves : Smile is symmetric. Forehead wrinkles bilaterally. Tongue protrudes midline. EOMI. Motor: There is no pronator drift. Cerebellar: Finger to nose is intact bilaterally. Skin: Warm and dry Internal Med - H&P Results - Labs CBC & Chem 7: 05/24/18 14:55 05/24/18 14:55
[2018-05-24] MEDS ORDERED: traZODone 50 MG TABLET PO PRN (20:18)
[2018-05-24] MEDS ORDERED: Azithromycin 500 MG in D5% in Water 250 ML IVPB SCH (21:00)
[2018-05-24] MEDS: Budesonide/Formoterol 160/4.5 MDI IH SCH (21:26)
[2018-05-24] MEDS: Albuterol 2.5 MG/3 ML NEBULIZER IH SCH (21:27)
[2018-05-24] MEDS: OXcarbazepine 150 MG TABLET PO SCH (21:46)
[2018-05-24] MEDS: clonazePAM 0.5 MG TABLET PO SCH (21:46)
[2018-05-24] MEDS: Lactobacillus 1 EACH CAP.SPRINK PO SCH (21:46)
[2018-05-24] MEDS ORDERED: Aspirin Enteric Coated 81 MG Tablet PO SCH (22:00)
[2018-05-25] MEDS: Albuterol 2.5 MG/3 ML NEBULIZER IH SCH ×3 (04:24→09:28)
[2018-05-25 06:51] LABS: Basophils % 0.1 %; Hematocrit 44.5 % (37.5-50.1); Hemoglobin 14.2 g/dL (12.9-16.9); Immature Granulocytes % 1.2 % (0-4); Lymphocytes % 14.2 %; Mean Corpuscular HGB Conc 31.9 g/dL (31.6-35.5); Mean Corpuscular Volume 81.5 fL (83.0-100.0); Mean Platelet Volume 9.3 fL (9.4-12.4); Monocytes # 0.4 K/mcL (0.0-1.3); Monocytes % 6.2 %; Neutrophils # 5.4 K/mcL (1.6-8.9); Platelet Count 249 K/mcL (140-400); Red Blood Count 5.46 M/mcL (4.19-5.50); Red Cell Distribution Width 15.8 % (11.5-14.5); Segmented Neutrophils % 78.3 %
[2018-05-25 07:00] VITALS: BP 139/60
--- NOTE | 2018-05-25 07:08 | Electrocardiograph Report ---
[address] [address] Test Date: 2018-05-24 Pat Name: Rene Ogden Department: [id number] Room: [facility] Gender: M Cardiovascular Physician Assistant: [id number] : 1935 Requested By: Sharyn León Order Number: [id number] Reading MD: Russell Pereira Measurements Intervals [place] Rate: 52 P: OR: 0 QRS: -24 QRSD: 82 T: 0 QT: 434 QTc: 413 Interpretive Statements probably sinus bradycardia BORDERLINE LEFT AXIS DEVIATION BASELINE ARTIFACT COMPLICATES ACCURATE INTERPRETATION Electronically Signed On 05-25-2018 7:07:34 EDT by Russell Pereira
[2018-05-25 07:11] LABS: BUN/Creatinine Ratio 22 (6-26); Blood Urea Nitrogen 16 mg/dL (8-23); Carbon Dioxide 31 mEq/L (23-29); Chloride 95 mEq/L (98-107); Glucose 244 mg/dL (70-105); Osmolality,Calculated 285 (280-300); Sodium 133 mEq/L (136-145); eGFR For African Americans > 60 (> 60); eGFR For Non-African Americans > 60 (> 60)
[2018-05-25] MEDS ORDERED: *HR* Glimepiride 2 MG TABLET PO SCH (08:00)
[2018-05-25] MEDS ORDERED: Furosemide 40 MG TABLET PO SCH (09:00)
[2018-05-25] MEDS ORDERED: Finasteride 5 MG TABLET PO SCH (09:00)
[2018-05-25] MEDS ORDERED: cefTRIAXone 1,000 MG in Water for inj. (sterile) 20 ML 10 ML IVP SCH (09:00)
[2018-05-25] MEDS: Budesonide/Formoterol 160/4.5 MDI IH SCH (09:28)
[2018-05-25] MEDS: OXcarbazepine 150 MG TABLET PO SCH (10:03)
[2018-05-25] MEDS: clonazePAM 0.5 MG TABLET PO SCH (10:04)
[2018-05-25] MEDS: Lactobacillus 1 EACH CAP.SPRINK PO SCH (10:04)
--- NOTE | 2018-05-25 10:05 | Discharge Summary ---
Orders not resulted at time of discharge: Pending orders 05/25/18 06:32 Basic Metabolic Panel AM 0400 Ferritin AM 0400 Iron Profile AM 0400 Vitamin B12 AM 0400 Date of Encounter: 05/25/18 Time of Encounter: 09:45 - Discharge Diagnosis (1) COPD (chronic obstructive pulmonary disease) with acute bronchitis Priority: Primary Status: Acute (2) Microcytosis Priority: Secondary Status: Acute (3) Low vitamin B12 level Priority: Secondary Status: Acute (4) Paroxysmal atrial fibrillation Priority: Secondary Status: Acute (5) Anxiety and depression Priority: Secondary Status: Chronic Hospital course: Mr. Ogden is a 82 year old male who came to emergency room stating he had 10-14 day history of cough and dyspnea. The cough was initially productive of yellow mucus but later change to white. He had minimal fevers. He denies hemoptysis. He had no vomiting or diarrhea. He went to a local urgent care shortly after onset of symptoms and received prescription for antibiotics. He followed up at his PCP office a few days later and was given a prescription for different antibiotics and prednisone. When he did not feel improved today he called his PCP office and was directed to come to emergency room. He was evaluated and admitted for ongoing care needs. Initial orders were written by the emergency room physician. I saw him on May 24 and performed a history and physical. He was given IV Rocephin and Zithromax with Solu-Medrol in emergency room. Chest CT was done to further evaluate. The CT showed diffuse bronchial wall thickening with mucus plugging consistent with bronchitis. He remained afebrile and vital signs stable during his hospital stay. When I saw him on May 25 he felt stable for discharge home. He will continue with anabiotic and prednisone prescribed by his PCP prior to admission. Trazodone was given for insomnia with good efficacy. He will continue this at home. He will follow with his PCP Dr. Ulrich within 1 week. - Time Spent with Patient Total time spent providing and/or coordinating discharge services: - Discharge Medications Prescriptions: Trazodone HCl 100 mg PO HS #30 tablet Home Medications: Atorvastatin [Lipitor] 40 mg PO HS 10/11/15 [History] Finasteride [Proscar] 5 mg PO DAILY 10/11/15 [History] Glimepiride [Amaryl] 4 mg PO DAILY 10/11/15 [History] Montelukast [Singulair] 10 mg PO DAILY 10/11/15 [History] Clopidogrel [Plavix] 75 mg PO DAILY 07/15/17 [History] Nitroglycerin [Nitrostat] 0.4 mg PO Q5-6MIN PRN 07/15/17 [History] Roflumilast [Daliresp] 500 mcg PO DAILY 07/15/17 [History] Oxygen 1 each .ROUTE AD PRN 10/21/17 [History] Aspirin [Lo-Dose Aspirin EC] 81 mg PO DAILY 03/02/18 [History] Budesonide/Formoterol 160/4.5 [Symbicort 160/4.5] 2 puff IH BIDR 03/02/18 [ History] Furosemide [Lasix] 40 mg PO DAILY 03/02/18 [History] Guaifenesin [Mucinex] 600 mg PO Q12H 03/02/18 [History] Insulin NPH Hum/Reg Insulin Hm [Humulin 70/30 Kwikpen] 10 unit SQ BID 03/02/18 [ History] Omeprazole [PriLOSEC] 20 mg PO DAILY 03/02/18 [History] Potassium Chloride 20 meq PO DAILY 03/02/18 [History] Sotalol [Betapace] 80 mg PO Q12HR 03/02/18 [History] Doxycycline 100 mg PO BID 05/24/18 [History] Dulera 200 Mcg/5 Mcg Inhaler 05/24/18 [History] OXcarbazepine [Trileptal] 150 mg PO BID 05/24/18 [History] Quetiapine Fumarate [Seroquel] 25 mg PO HS 05/24/18 [History] clonazePAM [Clonazepam] 0.25 mg PO BID 05/24/18 [History] predniSONE [PredniSONE] 10 mg PO DAILY 05/24/18 [History] Trazodone HCl 100 mg PO HS #30 tablet 05/25/18 [Rx] Allergies/Adverse Reactions: 3 Allergy/AdvReac Type Severity Reaction Status Date / Time No Known Allergies Allergy Verified 05/14/18 16:07 Date of admission: 05/24/18 15:45 Primary care physician: Saurabh Ulrich MD - Constitutional Vitals: Temp Pulse Resp BP Pulse Ox 97.5 F L 43 14 139/60 99 05/25/18 06:58 05/25/18 06:58 05/25/18 09:30 05/25/18 06:58 05/25/18 09:30 - Patient Status Disposition: Home, Self-Care Condition: Undetermined Overall status at discharge: patient is progressing back to baseline - Discharge Instructions Follow Up With: Saurabh Ulrich MD [Primary Care Provider] - 1 week - Diet and Activity Activity: resume usual activities as tolerated Diet: advance to your usual diet
[2018-05-25 10:14] LABS: % Iron Saturation 25 % (20-55); Iron 77 mcg/dL (65-175); Transferrin 219 mg/dL (203-362)
[2018-05-25] MEDS ORDERED: Insulin LISPRO 300 UNITS/3 ML VIAL SQ SCH ×2 (11:30→21:00)
[2018-05-25 15:03] LABS: Ferritin 76 ng/mL (20-250)
== END 2018-05-25 11:17 | disposition home or self-care (01) ==
LOC: INPPIK 14:03 → EMEROOPIK 14:03 → INPPIK 16:14
PROVIDERS: ADMIT Internal Medicine; ATTEND Internal Medicine

== ENCOUNTER 2018-12-28 07:16 | Observation (INO) ==
[2018-12-28] MEDS ORDERED: GI Cocktail 40 ML EACH PO ONE (07:20)
[2018-12-28] MEDS ORDERED: Nitroglycerin 0.4 MG TAB.SUBL SL ONE (07:20)
--- NOTE | 2018-12-28 07:24 | Emergency Department Note ---
Disposition Clinical Impression: Chest pain Disposition: Admitted As Inpatient Condition: Fair Time of Disposition: 09:34 Chest Pain HPI - General Chief Complaint: ED General Medical Stated Complaint: Chest Pain Time Seen by Provider: 12/28/18 07:22 Source: patient, EMS Mode of arrival: EMS Limitations: no limitations Vital Signs Reviewed: Yes Nursing Notes Reviewed: Yes - History of Present Illness HPI Narrative: 83-year-old male presents by EMS today for chest pain. States that the pain started around 5:30 this morning. This woke him up. He states initially it sort of felt like his last heart attack. They called Dr Cole, who ordered for him to take 3 nitros an aspirin and an Imdur, however states that the pain did not really change with that. He is discussed the pain as a 6 out of 10 in the center of his chest. Does not radiate. He states now does not feel somewhat like a chest like a heart attack. He has an extensive cardiac history with multiple rounds of bypasses and multiple stents in place. Patient has not had any nausea or sweatiness with this. patient has hx of pacemaker for irregular heart Patient is DNR [facility] and his primary care is Dr. Cole Pt complaint: chest pain - Related Data Home Medications Medication Instructions Recorded Confirmed Atorvastatin [Lipitor] 40 mg PO HS 10/11/15 12/28/18 Finasteride [Proscar] 5 mg PO DAILY 10/11/15 12/28/18 Glimepiride [Amaryl] 1 mg PO DAILY 10/11/15 12/28/18 Montelukast [Singulair] 10 mg PO DAILY 10/11/15 12/28/18 Nitroglycerin [Nitrostat] 0.4 mg PO Q5-6MIN PRN 07/15/17 12/28/18 Roflumilast [Daliresp] 500 mcg PO DAILY 07/15/17 12/28/18 Aspirin [Lo-Dose Aspirin EC] 81 mg PO DAILY 03/02/18 12/28/18 Furosemide [Lasix] 40 mg PO DAILY 03/02/18 12/28/18 Potassium Chloride 20 meq PO DAILY 03/02/18 12/28/18 Sotalol [Betapace] 80 mg PO Q12HR 03/02/18 12/28/18 Dulera 200 Mcg/5 Mcg Inhaler 1 puff IH BID 05/24/18 12/28/18 OXcarbazepine [Trileptal] 150 mg PO BID 05/24/18 12/28/18 clonazePAM [Clonazepam] 0.25 mg PO BID 05/24/18 12/28/18 Apixaban [Eliquis] 5 mg PO BID 12/28/18 12/28/18 Ferrous Sulfate [Iron] 325 mg PO DAILY 12/28/18 12/28/18 Pantoprazole Sodium [Protonix] 20 mg PO DAILY 12/28/18 12/28/18 Previous Rx's Medication Instructions Recorded Trazodone HCl 100 mg PO HS #30 tablet 05/25/18 Allergies Allergy/AdvReac Type Severity Reaction Status Date / Time No Known Allergies Allergy Verified 05/14/18 16:07 Review of Systems: All other systems are negative except as noted/marked Chart generated with voice recognition software Nursing notes reviewed Old records reviewed Chest Pain PMH - Past Medical History Medical history: Reports: COPD, coronary artery disease, CVA, diabetes, GERD, hyperlipidemia, hypertension Surgical history: Reports: angioplasty/stent, cholecystectomy, coronary bypass (CABG), herniorrhaphy, prostatectomy Psychiatric history: Reports: anxiety - Social History Smoking Status: Never smoker Alcohol use: Reports: none Drug use: Reports: none Physical Exam General: NAD, VSS Head: normocephalic, atraumatic Eyes: EOMI, PERRLA mouth: moist mucous membranes Neck: NO CLA, Supple Chest wall: normal rise, no crepitus, no deformity noted midline surgical scar down his chest noted Lungs: moving air well, no distress Heart: Regular rate and rhythm Abd: soft, nontender, BS normal : deferred MSK: strength equal in all four extremities Ext: moves all four extremities, no obvious deformities Skin: cap refill normal, warm, dry 1+ pitting edema bilateral lower extremities neuro : CN2-12 grossly intact, A&Ox3 Psych: normal affect, not anxious Course Course Narrative: Continues to be asymptomatic at this time his initial enzymes are negative I spoke with Dr. Cole has agreed for admission patient's alert oriented well- nourished male in no distress his skin is without rash or lesion pupils round nares are patent tympanic intact throat soft supple trachea is midline chest station heart regular rate and rhythm abdomen soft positive bowel sounds mentation is clear intact patient will be admitted for observation serial enzymes chest pain transferred to [facility] Vital Signs Temperature 97.8 F 12/28/18 07:18 Pulse Rate 94 12/28/18 07:18 Respiratory Rate 18 12/28/18 07:18 Blood Pressure 119/81 12/28/18 07:18 O2 Sat by Pulse Oximetry 95 12/28/18 07:18 Temperature 97.8 F 12/28/18 07:18 Pulse Rate 80 12/28/18 08:16 Respiratory Rate 17 12/28/18 08:16 Blood Pressure 98/64 12/28/18 08:16 O2 Sat by Pulse Oximetry 94 12/28/18 08:16 Oxygen Delivery Oxygen Delivery Room Air Chest Pain - MDM Narrative Medical decision making narrative: 0740: patient states now, pain free, doesn't want nitroglycerin at this time. Did get GI cocktail. - Medical Records Medical records reviewed: Yes I reviewed the patient's medical records. - Lab Data Lab results reviewed: Yes I reviewed the patient's lab results. Result diagrams: 12/28/18 07:34 12/28/18 07:34 Lab Results 12/28/18 12/28/18 12/28/18 Range/Units 07:34 07:34 07:34 WBC (4.3-11.1) K/mcL RBC (4.19-5.50) M/mcL Hgb (12.9-16.9) g/dL Hct (37.5-50.1) % MCV (83.0-100.0) fL MCH (28.0-33.3) pg MCHC (31.6-35.5) g/dL RDW (11.5-14.5) % Plt Count (140-400) K/mcL MPV (9.4-12.4) fL Immature Gran % (0-4) % Seg Neutrophils % % Lymphocytes % % Monocytes % % Eosinophils % % Basophils % % Neutrophils # (1.6-8.9) K/mcL Lymphocytes # (0.6-4.6) K/mcL Monocytes # (0.0-1.3) K/mcL Eosinophils # (0.0-0.6) K/mcL Basophils # (0.0-0.2) K/mcL PT 14.7 H (9.4-12.1) Seconds INR 1.3 APTT 37.9 H (26.0-36.0) Seconds Sodium (136-145) mEq/L Potassium (3.5-5.1) mEq/L Chloride (98-107) mEq/L Carbon Dioxide (23-29) mEq/L BUN (8-23) mg/dL Creatinine (0.70-1.30) mg/dL Est GFR ( Amer) (> 60) Est GFR (Non-Af Amer) (> 60) BUN/Creatinine Ratio (6-26) Glucose (70-105) mg/dL Calculated Osmolality (280-300) Calcium (8.6-10.3) mg/dL Total Bilirubin 0.6 (0.3-1.0) mg/dL Direct Bilirubin 0.1 (0.0-0.2) mg/dL Indirect Bilirubin 0.5 (0.0-1.2) mg/dL AST 11 L (13-39) Units/L ALT 9 (7-52) Units/L Alkaline Phosphatase 73 (34-104) Units/L Troponin I (< 0.04) ng/mL B-Natriuretic Peptide 111 H (Less than 100) pg/mL Serum Total Protein 5.9 L (6.4-8.9) g/dL Albumin 3.5 (3.5-5.7) g/dL Globulin 2.4 (2.4-3.5) g/dL Albumin/Globulin Ratio 1.5 (1.1-2.2) Lipase 30 (11-82) Units/L 12/28/18 12/28/18 Range/Units 07:34 07:34 WBC 6.4 (4.3-11.1) K/mcL RBC 4.79 (4.19-5.50) M/mcL Hgb 12.9 (12.9-16.9) g/dL Hct 40.8 (37.5-50.1) % MCV 85.2 (83.0-100.0) fL MCH 26.9 L (28.0-33.3) pg MCHC 31.6 (31.6-35.5) g/dL RDW 13.3 (11.5-14.5) % Plt Count 183 (140-400) K/mcL MPV 9.6 (9.4-12.4) fL Immature Gran % 0.3 (0-4) % Seg Neutrophils % 62.9 % Lymphocytes % 22.2 % Monocytes % 12.1 % Eosinophils % 2.0 % Basophils % 0.5 % Neutrophils # 4.0 (1.6-8.9) K/mcL Lymphocytes # 1.4 (0.6-4.6) K/mcL Monocytes # 0.8 (0.0-1.3) K/mcL Eosinophils # 0.1 (0.0-0.6) K/mcL Basophils # 0.0 (0.0-0.2) K/mcL PT (9.4-12.1) Seconds INR APTT (26.0-36.0) Seconds Sodium 136 (136-145) mEq/L Potassium 3.9 (3.5-5.1) mEq/L Chloride 98 (98-107) mEq/L Carbon Dioxide 34 H (23-29) mEq/L BUN 9 (8-23) mg/dL Creatinine 0.70 (0.70-1.30) mg/dL Est GFR ( Amer) > 60 (> 60) Est GFR (Non-Af Amer) > 60 (> 60) BUN/Creatinine Ratio 13 (6-26) Glucose 133 H (70-105) mg/dL Calculated Osmolality 283 (280-300) Calcium 9.0 (8.6-10.3) mg/dL Total Bilirubin (0.3-1.0) mg/dL Direct Bilirubin (0.0-0.2) mg/dL Indirect Bilirubin (0.0-1.2) mg/dL AST (13-39) Units/L ALT (7-52) Units/L Alkaline Phosphatase (34-104) Units/L Troponin I < 0.03 (< 0.04) ng/mL B-Natriuretic Peptide (Less than 100) pg/mL Serum Total Protein (6.4-8.9) g/dL Albumin (3.5-5.7) g/dL Globulin (2.4-3.5) g/dL Albumin/Globulin Ratio (1.1-2.2) Lipase (11-82) Units/L - Radiology Data Radiology results reviewed: Yes I reviewed the patient's radiology results. XR/XR chest 1V portable IMPRESSION: Diffuse, bilateral interstitial opacities may reflect interstitial edema or atypical pneumonia. D/ / Annie Girard MD / Annie Girard MD Interpreting Provider: Annie Girard MD - EKG Data EKG attestation: Yes I reviewed and interpreted this EKG. EKG results narrative: EKG interpreted by myself as a paced rhythm at a rate of 95 QTC of [address] elevation he does have some PVCs Heart Score - Score History: Moderately Suspicious EKG: Non Specific repolarisation Disturbance Age: Greater than 65 Risk Factors: Equal/Greater than 3 risk factor or history of atherosclerotic disease Troponin: Less than normal limit HEART Score Total: 6 Critical Care Time Critical Care Time: No S.B.A.R. - S.B.A.R. Situation: Demographics, MOA Background: Presenting Complaint, Relevant PMH, Meds, & Allergies Assessment: Vital Signs, Course and respsone to treatment, Exam Concerns, Patient/Family Expectation, Pertinant Lab Results, Outstanding Labs Recommendation: Barrier(s) to disposition, Recommendation based on pending studies, treatments, or consults S.B.A.R. Report Given to: Dr Chandu GoetzB.ARose Repor Time: 08:00
[2018-12-28 07:44] LABS: Basophils % 0.5 %; Eosinophils # 0.1 K/mcL (0.0-0.6); Hematocrit 40.8 % (37.5-50.1); Hemoglobin 12.9 g/dL (12.9-16.9); Immature Granulocytes % 0.3 % (0-4); Lymphocytes # 1.4 K/mcL (0.6-4.6); Lymphocytes % 22.2 %; Mean Corpuscular HGB Conc 31.6 g/dL (31.6-35.5); Mean Corpuscular Hemoglobin 26.9 pg (28.0-33.3); Mean Corpuscular Volume 85.2 fL (83.0-100.0); Mean Platelet Volume 9.6 fL (9.4-12.4); Monocytes # 0.8 K/mcL (0.0-1.3); Monocytes % 12.1 %; Platelet Count 183 K/mcL (140-400); Red Blood Count 4.79 M/mcL (4.19-5.50); Red Cell Distribution Width 13.3 % (11.5-14.5); Segmented Neutrophils % 62.9 %
[2018-12-28 07:53] LABS: INR 1.3; Prothrombin Time 14.7 Seconds (9.4-12.1)
[2018-12-28 07:55] LABS: Activated Partial Thrombo Time 37.9 Seconds (26.0-36.0)
[2018-12-28 08:02] LABS: Albumin 3.5 g/dL (3.5-5.7); Albumin/Globulin Ratio 1.5 (1.1-2.2); Bilirubin,Direct 0.1 mg/dL (0.0-0.2); Bilirubin,Indirect 0.5 mg/dL (0.0-1.2); Bilirubin,Total 0.6 mg/dL (0.3-1.0); Globulin 2.4 g/dL (2.4-3.5); Total Protein 5.9 g/dL (6.4-8.9)
[2018-12-28 08:03] LABS: BUN/Creatinine Ratio 13 (6-26); Blood Urea Nitrogen 9 mg/dL (8-23); Carbon Dioxide 34 mEq/L (23-29); Chloride 98 mEq/L (98-107); Glucose 133 mg/dL (70-105); Osmolality,Calculated 283 (280-300); Potassium 3.9 mEq/L (3.5-5.1); Sodium 136 mEq/L (136-145); eGFR For Non-African Americans > 60 (> 60)
[2018-12-28 08:04] LABS: Troponin I < 0.03 ng/mL (< 0.04)
[2018-12-28] MEDS ORDERED: 0.9 % Sodium Chloride 1,000 ML IVC SCH (09:01)
[2018-12-28] MEDS ORDERED: Acetaminophen 325 MG TABLET PO PRN (09:01)
[2018-12-28] MEDS ORDERED: Nitroglycerin 0.4 MG TAB.SUBL SL PRN (09:01)
[2018-12-28] MEDS ORDERED: Naloxone 0.4 MG/ML INJ IVP PRN (09:01)
[2018-12-28] MEDS ORDERED: DALIRESP 500MCG PO SCH (09:01)
[2018-12-28] MEDS: Furosemide 40 MG TABLET PO SCH (11:34)
[2018-12-28] MEDS: Aspirin Enteric Coated 81 MG Tablet PO SCH (11:34)
[2018-12-28] MEDS: *HR* Glimepiride 2 MG TABLET PO SCH (11:34)
[2018-12-28] MEDS: Apixaban 5 MG TABLET PO SCH ×2 (11:35→20:36)
[2018-12-28] MEDS: clonazePAM 0.5 MG TABLET PO SCH ×2 (11:35→20:36)
[2018-12-28] MEDS: OXcarbazepine 150 MG TABLET PO SCH ×2 (11:35→20:36)
[2018-12-28] MEDS: Finasteride 5 MG TABLET PO SCH (11:36)
[2018-12-28] MEDS: Budesonide/Formoterol 160/4.5 1 PUFF INH IH SCH ×2 (11:44→22:08)
--- NOTE | 2018-12-28 17:42 | Internal Med History&Physical ---
Date of Encounter: 12/28/18 Time of Encounter: 17:20 Assessment and Plan (1) Chest pain Current visit: Yes Status: Acute Suspect angina from ischemia. Serial cardiac enzymes have been ordered. He will be started on Plavix in addition to aspirin. Isosorbide will be added. Qualifiers: Chest pain type: precordial pain Qualified Code(s): R07.2 - Precordial pain (2) Paroxysmal atrial fibrillation Current visit: No Status: Acute Continue sotalol and Eliquis. (3) DM type 2 (diabetes mellitus, type 2) Current visit: No Status: Chronic Continue Amaryl. He can not tolerate metformin because of GI side effects. Qualifiers: Diabetes mellitus snf insulin use: without bed bug exterminator use Diabetes mellitus complication status: without complication Qualified Code(s): E11.9 - Type 2 diabetes mellitus without complications (4) Hyperlipidemia Current visit: No Status: Chronic Continue Lipitor Qualifiers: Hyperlipidemia type: unspecified Qualified Code(s): E78.5 - Hyperlipidemia, unspecified Internal Medicine - H&P: HPI Chief complaint: Chest pain Admitted From: Emergency Dept Plans for Post Hospital Care: Home History of present illness: Mr. Ogden is a 83 year old male who came to emergency room stating he was awakened approximately 0430 with discomfort in his chest that he describes as a "pressure" sensation in his left mid chest area. He was given nitroglycerin pills with some relief. He was sent to emergency room for evaluation and was admitted to [facility] floor ongoing care needs. He has had increasing number of similar episodes over the past several days. He has history of hypertension and known ASHD status post 3 vessel CABG 1980 and 4 vessel CABG 1996. He had PTCA with single stent placed 2005. Most recent heart catheter was November 2016 at [place] without intervention done. He was told he had adequate collaterals. He has history of atrial fib/flutter and was cardioverted October 2015 at [facility] and was maintained on Xarelto for a while. He has remained in normal sinus rhythm. He states Xarelto was discontinued during a September 2017 hospitalization in [place] for congestive heart failure and pneumonia. He is now on Eliquis and aspirin. He reports a permanent pacemaker was placed May 2018 at [place]. He had a left carotid endarterectomy in 2014. He denies NV heart failure DVT or pulmonary embolus. He states he is pain-free at the present time. Past Med Surg Social Fam HX - Past Medical History Medical history: COPD, coronary artery disease, CVA, diabetes, GERD, hyperlipidemia, hypertension Additional medical history: HAD A NOSE BLEED WHILE HE WAS IN [place] WHICH WAS CAUTERIZED. HAD AN EPISODE THIS PM. MULTIPLE CARDIAC BYPASSES, SEVERAL CARDIAC STENTS Psychiatric history: anxiety - Past Surgical History Surgical History: angioplasty/stent, cholecystectomy, coronary bypass (CABG), herniorrhaphy, prostatectomy, pacemaker Additional surgical history: Prostate surgery x 2 - Social History Smoking Status: Never smoker Smokeless Tobacco Status: No Alcohol use: none Drug use: none - Family History Father Family Member Ethnicity: Non- Living Status: Age at : 96 Cause of : Fall Mother Family Member Ethnicity: Non- Living Status: Age at : 99 Cause of : Natural Causes Hx Family Cardiac Disorders: Yes Hx Family Neurologic Disorders: Yes Internal Medicine - H&P: Meds Atorvastatin [Lipitor] 40 mg PO HS 10/11/15 [History] Finasteride [Proscar] 5 mg PO DAILY 10/11/15 [History] Glimepiride [Amaryl] 1 mg PO DAILY 10/11/15 [History] Montelukast [Singulair] 10 mg PO DAILY 10/11/15 [History] Nitroglycerin [Nitrostat] 0.4 mg PO Q5-6MIN PRN 07/15/17 [History] Roflumilast [Daliresp] 500 mcg PO DAILY 07/15/17 [History] Aspirin [Lo-Dose Aspirin EC] 81 mg PO DAILY 03/02/18 [History] Furosemide [Lasix] 40 mg PO DAILY 03/02/18 [History] Potassium Chloride 20 meq PO DAILY 03/02/18 [History] Sotalol [Betapace] 80 mg PO Q12HR 03/02/18 [History] Dulera 200 Mcg/5 Mcg Inhaler 1 puff IH BID 05/24/18 [History] OXcarbazepine [Trileptal] 150 mg PO BID 05/24/18 [History] clonazePAM [Clonazepam] 0.25 mg PO BID 05/24/18 [History] Trazodone HCl 100 mg PO HS #30 tablet 05/25/18 [Rx] Apixaban [Eliquis] 5 mg PO BID 02/14/19 [History] Ferrous Sulfate [Iron] 325 mg PO DAILY 12/28/18 [History] Pantoprazole Sodium [Protonix] 20 mg PO DAILY 12/28/18 [History] Allergy/AdvReac Type Severity Reaction Status Date / Time No Known Allergies Allergy Verified 05/14/18 16:07 All Systems PM: A 10-system review of systems was performed and is negative for pertinent findings except as documented above in the HPI. Review of systems: Review of systems from May 2018 [facility] hospitalization were reviewed and revised as below. Gen.: His weight has decreased from approximately 96 kg since the November 2015 [facility] hospitalization to 91.626 kg at present. Cardiovascular: As per history of present illness Respiratory: He smoked from age [age] up to 2 packs per day. He had pulmonary function tests December 2015 which showed severe COPD. FEV1/FVC was 50%. His FEV1 had significant improvement postbronchodilator. He had elevated RV consistent with air trapping. His DLCO was 28% corrected. GI: He has had cholecystectomy. He has GERD but denies disorders of his liver or exocrine pancreas : He has had stones in his kidney and bladder in the past. He has BPH. 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 He denies other large distribution strokes or seizures. He has benign essential tremor. Endocrine: He was diagnosed with DM 2 approximately 1984. Hemoglobin A1c was 7.4% on 12/25/2018. He has hyperlipidemia but no known thyroid disease Hematology/oncology: He denies blood disorders cancers or anemia Psychiatric: He was hospitalized at [facility] early 2017 for anxiety and depression. [place] skeletal: Has history of gout but denies other bone joint or muscle disorders. - Constitutional Vitals: Temp Pulse Resp BP Pulse Ox 97.9 F 73 18 120/75 93 12/28/18 12:50 12/28/18 12:50 12/28/18 12:50 12/28/18 12:50 12/28/18 12:50 Exam: Gen.: He is a well-developed well-nourished male sitting in bed who appears in no acute distress HEENT: Head is atraumatic and normocephalic. Eyes: EOMI. There is no scleral icterus. Mouth: Mucosa is moist. Neck: Supple and nontender. There is no thyromegaly or adenopathy noted. Heart: Regular without murmurs gallops or ectopics Lungs: No wheezes or crackles are heard. Abdomen: Soft and nontender. No masses or guarding are noted. Extremities: There is no cyanosis edema or clubbing noted. Dorsalis pedis and posttibial pulses are trace to 1+ palpable bilaterally. Neurologic: Mental status: He is talkative and a good historian. Cranial nerves: Smile is symmetric. Forehead wrinkles bilaterally. Tongue protrudes midline. EOMI. Motor: There is no pronator drift. Cerebellar: Finger to nose is intact bilaterally. Skin: Warm and dry Internal Med - H&P Results - Labs CBC & Chem 7: 12/28/18 07:34 12/28/18 07:34 Labs: Short CBC 12/28/18 Range/Units 07:34 WBC 6.4 (4.3-11.1) K/mcL Hgb 12.9 (12.9-16.9) g/dL Hct 40.8 (37.5-50.1) % Plt Count 183 (140-400) K/mcL Neutrophils # 4.0 (1.6-8.9) K/mcL BMP 12/28/18 07:34 Sodium 136 Potassium 3.9 Chloride 98 Carbon Dioxide 34 H BUN 9 Creatinine 0.70 Glucose 133 H Calcium 9.0 Cardiac Enzymes 12/28/18 12/28/18 Range/Units 07:34 13:35 Troponin I < 0.03 < 0.03 (< 0.04) ng/mL Liver Function 12/28/18 Range/Units 07:34 Total Bilirubin 0.6 (0.3-1.0) mg/dL Direct Bilirubin 0.1 (0.0-0.2) mg/dL AST 11 L (13-39) Units/L ALT 9 (7-52) Units/L Alkaline Phosphatase 73 (34-104) Units/L Albumin 3.5 (3.5-5.7) g/dL - Impressions ITS Impressions Chest X-Ray 12/28/18 07:20 IMPRESSION: Diffuse, bilateral interstitial opacities may reflect interstitial edema or atypical pneumonia. D/ / 12/28/2018 07:54:34 Annie Girard MD / Hilary Box Interpreting Provider: Annie Girard MD
[2018-12-28] MEDS: Isosorbide MONOnitrate (24 HR) 60 MG TAB.ER.24H PO SCH (20:35)
[2018-12-28] MEDS ORDERED: traZODone 50 MG TABLET PO SCH (21:00)
[2018-12-29] MEDS: Budesonide/Formoterol 160/4.5 1 PUFF INH IH SCH (07:29)
[2018-12-29 07:37] LABS: Basophils % 0.4 %; Eosinophils # 0.1 K/mcL (0.0-0.6); Eosinophils % 1.5 %; Hematocrit 40.3 % (37.5-50.1); Immature Granulocytes % 0.3 % (0-4); Lymphocytes # 1.6 K/mcL (0.6-4.6); Lymphocytes % 21.3 %; Mean Corpuscular HGB Conc 32.3 g/dL (31.6-35.5); Mean Corpuscular Hemoglobin 27.2 pg (28.0-33.3); Mean Corpuscular Volume 84.3 fL (83.0-100.0); Mean Platelet Volume 10.1 fL (9.4-12.4); Monocytes # 0.8 K/mcL (0.0-1.3); Monocytes % 10.3 %; Neutrophils # 4.9 K/mcL (1.6-8.9); Platelet Count 192 K/mcL (140-400); Red Blood Count 4.78 M/mcL (4.19-5.50); Red Cell Distribution Width 13.4 % (11.5-14.5); Segmented Neutrophils % 66.2 %
[2018-12-29 08:04] VITALS: BP 89/55
[2018-12-29 08:43] LABS: BUN/Creatinine Ratio 13 (6-26); Blood Urea Nitrogen 9 mg/dL (8-23); Calcium 8.7 mg/dL (8.6-10.3); Carbon Dioxide 32 mEq/L (23-29); Chloride 101 mEq/L (98-107); Glucose 117 mg/dL (70-105); Osmolality,Calculated 288 (280-300); Potassium 3.7 mEq/L (3.5-5.1); Sodium 139 mEq/L (136-145); eGFR For Non-African Americans > 60 (> 60)
--- NOTE | 2018-12-29 09:44 | Discharge Summary ---
Date of Encounter: 12/29/18 Time of Encounter: 09:35 - Discharge Diagnosis (1) Chest pain Priority: Primary Status: Acute Qualifiers: Chest pain type: precordial pain Qualified Code(s): R07.2 - Precordial pain (2) Paroxysmal atrial fibrillation Priority: Secondary Status: Acute (3) DM type 2 (diabetes mellitus, type 2) Priority: Secondary Status: Chronic Qualifiers: Diabetes mellitus production grader insulin use: without production grader use Diabetes mellitus complication status: without complication Qualified Code(s): E11.9 - Type 2 diabetes mellitus without complications (4) Hyperlipidemia Priority: Secondary Status: Chronic Qualifiers: Hyperlipidemia type: unspecified Qualified Code(s): E78.5 - Hyperlipidemia, unspecified Hospital course: Mr. Ogden is a 83 year old male who came to emergency room stating he was aw akened approximately 0430 with discomfort in his chest that he describes as a "pressure" sensation in his left mid chest area. He was given nitroglycerin pills with some relief. He was sent to emergency room for evaluation and was admitted to [facility] floor ongoing care needs. Initial orders were written by the emergency room physician. I saw him on December 28 and performed a history and physical. Repeat cardiac enzymes showed no evidence of myocardial damage. He was started on Plavix and Imdur. Eliquis, aspirin, and sotalol were continued. He had no further chest pain after admission. On December 29 he felt stable for discharge back to assisted living apartment. He will follow with me there. - Time Spent with Patient Total time spent providing and/or coordinating discharge services: - Discharge Medications Prescriptions: Clopidogrel [Plavix] 75 mg PO DAILY #30 tablet Isosorbide MONOnitrate (24 HR) [Imdur] 60 mg PO DAILY #30 tab.er.24h Home Medications: Atorvastatin [Lipitor] 40 mg PO HS 10/11/15 [History] Finasteride [Proscar] 5 mg PO DAILY 10/11/15 [History] Glimepiride [Amaryl] 1 mg PO DAILY 10/11/15 [History] Montelukast [Singulair] 10 mg PO DAILY 10/11/15 [History] Nitroglycerin [Nitrostat] 0.4 mg PO Q5-6MIN PRN 07/15/17 [History] Roflumilast [Daliresp] 500 mcg PO DAILY 07/15/17 [History] Aspirin [Lo-Dose Aspirin EC] 81 mg PO DAILY 03/02/18 [History] Furosemide [Lasix] 40 mg PO DAILY 03/02/18 [History] Potassium Chloride 20 meq PO DAILY 03/02/18 [History] Sotalol [Betapace] 80 mg PO Q12HR 03/02/18 [History] Dulera 200 Mcg/5 Mcg Inhaler 1 puff IH BID 05/24/18 [History] OXcarbazepine [Trileptal] 150 mg PO BID 05/24/18 [History] clonazePAM [Clonazepam] 0.25 mg PO BID 05/24/18 [History] Trazodone HCl 100 mg PO HS #30 tablet 05/25/18 [Rx] Apixaban [Eliquis] 5 mg PO BID 12/28/18 [History] Ferrous Sulfate [Iron] 325 mg PO DAILY 12/28/18 [History] Clopidogrel [Plavix] 75 mg PO DAILY #30 tablet 12/29/18 [Rx] Isosorbide MONOnitrate (24 HR) [Imdur] 60 mg PO DAILY #30 tab.er.24h 12/29/18 [Rx] Pantoprazole Sodium [Protonix] 20 mg PO DAILY PRN #0 12/29/18 [Rx] Allergies/Adverse Reactions: Allergy/AdvReac Type Severity Reaction Status Date / Time No Known Allergies Allergy Verified 05/14/18 16:07 Date of admission: 12/28/18 08:25 Primary care physician: Dorian Cole MD Consults: 12/28/18 10:50 Consult to [employer] [CONS] Routine Reason for SW Consult: Discharge planning - Constitutional Vitals: Temp Pulse Resp BP Pulse Ox 98.1 F 78 16 89/55 92 12/29/18 07:50 12/29/18 07:50 12/29/18 07:50 12/29/18 07:50 12/29/18 07:50 - Patient Status Disposition: Home, Self-Care Condition: Fair - Discharge Instructions Follow Up With: Dorian Cole MD [Primary Care Provider] - 1 week - Diet and Activity Activity: resume usual activities as tolerated Diet: diabetic diet
[2018-12-29] MEDS: Furosemide 40 MG TABLET PO SCH (10:26)
[2018-12-29] MEDS: clonazePAM 0.5 MG TABLET PO SCH (10:26)
[2018-12-29] MEDS: Isosorbide MONOnitrate (24 HR) 60 MG TAB.ER.24H PO SCH (10:26)
[2018-12-29] MEDS: OXcarbazepine 150 MG TABLET PO SCH (10:27)
[2018-12-29] MEDS: Finasteride 5 MG TABLET PO SCH (10:27)
[2018-12-29] MEDS: Aspirin Enteric Coated 81 MG Tablet PO SCH (10:27)
[2018-12-29] MEDS: Apixaban 5 MG TABLET PO SCH (10:27)
[2018-12-29] MEDS: *HR* Glimepiride 2 MG TABLET PO SCH (10:32)
--- NOTE | 2018-12-30 16:09 | Electrocardiograph Report ---
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
== END 2018-12-29 10:40 | disposition home or self-care (01) ==
LOC: EMEROOPIK 07:16 → INPPIK 07:16
PROVIDERS: ADMIT Internal Medicine; ATTEND Internal Medicine

== ENCOUNTER 2019-02-27 14:46 | Observation (INO) ==
--- NOTE | 2019-02-27 14:49 | Emergency Department Note ---
Disposition Clinical Impression: Dyspnea on exertion, Atypical chest pain Disposition: Home, Self-Care Condition: Fair Referrals: Dorian Cole MD [Primary Care Provider] - Forms: ED Satisfaction Letter SOB HPI - General Chief Complaint: ED Shortness of Breath/Dyspnea Stated Complaint: short of breath, weakness Time Seen by Provider: 02/27/19 14:47 Source: patient, family, EMS Mode of arrival: EMS Limitations: no limitations Nursing Notes Reviewed: Yes Vital Signs Reviewed: Yes - History of Present Illness Patient arrives by private transport from assisted living. His daughter is a respiratory therapist our facility and is present to help with his history. The patient relates she is been having dyspnea and chest pain "for a long time". His chest discomfort is described as a intermittent pressure. States mainly he is now getting more dyspnea with exertion which does get better with rest. He has had a little more swelling of his ankles and legs. He states he has been taking his normal Lasix but he might have missed 1 or 2 as there was a in the family in a this last week. He believes he has been taking all his other medications regularly. Does have history of some chronic anemia for which she takes a vitamin supplementation. He has not been having radiation of discomfort to his jaw, back or arms. He denies diaphoresis or nausea. Is not having feeling palpitations. Denies nausea, vomiting or abdominal pain. He denies any fevers, chills or cough. He does have history of known coronary artery disease as well as CHF and dysrhythmia for which has a pacemaker. He has on Eliquis. His last cardiac stent was in November 2016 and his daughter believes his last catheterization was performed to [place] and about November 2017. Family was advised that he appeared to have adequate collaterals around any area of stenosis. He has been told that he is not a candidate for any other intervention and he can only have medical management of his symptoms. With this he has a DNR CCA status. Currently is reporting some dyspnea but is not having any active chest pain. Pt Subjective Complaint: shortness of breath, chest pain Onset (ago): month(s) Context: medication noncompliance Severity: mild, moderate Consistency/Duration: intermittent Improves with: rest Worsens with: exertion Known history of: COPD, congestive heart failure, diabetes Associated symptoms: Reports: chest pain. Denies: pain with inspiration, fever, cough, wheezing, sputum production, orthopnea, lower extremity pain, polyuria, polydipsia, parasthesias, palpitations, hemoptysis, diaphoresis, nausea/vomiting, syncope, abdominal pain, rash Treatment prior to arrival: oxygen Cough present: No - Related Data Home oxygen amount: none Home Medications Medication Instructions Recorded Confirmed Atorvastatin [Lipitor] 40 mg PO HS 10/11/15 02/27/19 Finasteride [Proscar] 5 mg PO DAILY 10/11/15 02/14/19 Glimepiride [Amaryl] 1 mg PO DAILY 10/11/15 02/14/19 Montelukast [Singulair] 10 mg PO DAILY 10/11/15 02/14/19 Nitroglycerin [Nitrostat] 0.4 mg PO Q5-6MIN PRN 07/15/17 02/14/19 Roflumilast [Daliresp] 500 mcg PO DAILY 07/15/17 02/14/19 Aspirin [Lo-Dose Aspirin EC] 81 mg PO DAILY 03/02/18 02/27/19 Furosemide [Lasix] 40 mg PO DAILY 03/02/18 02/14/19 Potassium Chloride 20 meq PO DAILY 03/02/18 02/14/19 Sotalol [Betapace] 80 mg PO Q12HR 03/02/18 02/14/19 Dulera 200 Mcg/5 Mcg Inhaler 1 puff IH BID 05/24/18 02/27/19 OXcarbazepine [Trileptal] 150 mg PO BID 05/24/18 02/14/19 clonazePAM [Clonazepam] 0.25 mg PO BID 05/24/18 02/14/19 Apixaban [Eliquis] 5 mg PO BID 12/28/18 02/27/19 Ferrous Sulfate [Iron] 325 mg PO DAILY 12/28/18 02/27/19 Cholecalciferol (Vitamin D3) 1,000 unit PO DAILY 02/14/19 02/27/19 [Vitamin D] Sertraline [Zoloft] 50 mg PO DAILY 02/14/19 02/14/19 Previous Rx's Medication Instructions Recorded Trazodone HCl 100 mg PO HS #30 tablet 05/25/18 Clopidogrel [Plavix] 75 mg PO DAILY #30 tablet 12/29/18 Isosorbide MONOnitrate (24 HR) 60 mg PO DAILY #30 tab.er.24h 12/29/18 [Imdur] Pantoprazole Sodium [Protonix] 20 mg PO DAILY PRN #0 12/29/18 Allergies Allergy/AdvReac Type Severity Reaction Status Date / Time No Known Allergies Allergy Verified 02/14/19 09:27 All systems ED: reviewed and negative except as stated. Past Medical History - Past Medical History Attestation: Yes The following information was validated with the patient. Source: patient, old records reviewed, obtained from family, nursing notes reviewed Medical history: Reports: atrial fibrillation, CHF, COPD, coronary artery disease, CVA, diabetes, GERD, hyperlipidemia, hypertension Surgical history: Reports: angioplasty/stent, cholecystectomy, coronary bypass (CABG), herniorrhaphy, prostatectomy, pacemaker Psychiatric history: Reports: anxiety - Social History Smoking Status: Never smoker Smokeless Tobacco Status: No Alcohol use: Reports: none Drug use: Reports: none Physical Exam - General Limitations: no limitations General appearance: alert, in no apparent distress - Head Head exam: atraumatic, normocephalic, normal inspection - Eye Eye exam: Present: normal appearance, PERRL, EOMI. Absent: conjunctival injection - ENT ENT exam: normal exam, normal oropharynx, mucous membranes moist - Neck Neck exam: Present: normal inspection, full ROM, trachea midline. Absent: lymphadenopathy - Chest Chest inspection: Present: normal inspection, symmetric chest wall rise - Respiratory Respiratory exam: Present: normal lung sounds bilaterally (Diminished at the bases). Absent: respiratory distress, wheezes, prolonged expiratory phase - Cardiovascular Cardiovascular exam: Present: regular rate, normal rhythm, normal heart sounds. Absent: JVD - Abdominal Exam Abdominal exam: Present: soft, Non-Tender, normal bowel sounds. Absent: tenderness, distention, guarding, rebound, rigidity - Extremities Exam Extremities exam: Present: normal inspection, full ROM, normal capillary refill, pedal edema (1-2+). Absent: tenderness, calf tenderness - Expanded Lower Extremity Exam Neurovascular/Tendon exam: Present: normal capillary refill. Absent: motor deficit, sensory deficit, tendon deficit Gait: not tested/not observed - Back Exam Back exam: Present: normal inspection, full ROM. Absent: tenderness - Neurological Exam Neurological exam: Present: alert, oriented X3 - Psychiatric Psychiatric exam: Present: normal affect, normal mood - Skin Skin exam: Present: warm, dry, intact, normal color. Absent: cyanosis, diaphoresis, pallor Course Course Narrative: 1640: Care is discussed with Dr. Cole. He would like to observe the patient and try some diuresis with IV Lasix. He would like repeat labs in the morning and then coordinate his further care. He has a progressive anemia but has been evaluated extensively in [place] a year ago and no cause for bleed has been found after endoscopy and all. He is not meet current criteria for transfusion but will be observed. Verbal orders have been obtained for his admission. Vital Signs Temperature 97.7 F 02/27/19 14:48 Pulse Rate 70 02/27/19 14:48 Respiratory Rate 15 02/27/19 14:48 Blood Pressure 132/81 02/27/19 14:48 O2 Sat by Pulse Oximetry 95 02/27/19 14:48 Temperature 97.7 F 02/27/19 14:48 Pulse Rate 72 02/27/19 16:16 Respiratory Rate 18 02/27/19 16:16 Blood Pressure 108/63 02/27/19 16:16 O2 Sat by Pulse Oximetry 93 02/27/19 16:16 Oxygen Delivery Oxygen Delivery Room Air Shortness of Breath/Dyspnea - Differential Diagnosis Likely: acute exacerbation of chronic obstructive airways disease, congestive heart failure, arrhythmia - Medical Records Medical records reviewed: Yes I reviewed the patient's medical records. - Lab Data Lab results reviewed: Yes I reviewed the patient's lab results. Lab results narrative: Patient's hemoglobin has continued to trend downward. Since February 12 it has dropped from 10.1-8.8. On December 29 his hemoglobin was 13. Result diagrams: 02/27/19 15:19 02/27/19 15:19 Lab Results 02/27/19 02/27/19 02/27/19 Range/Units 15:19 15: 15: WBC 5.7 (4.3-11.1) K/mcL RBC 3.42 L (4.19-5.50) M/mcL Hgb 8.8 L (12.9-16.9) g/dL Hct 29.4 L (37.5-50.1) % MCV 86.0 (83.0-100.0) fL MCH 25.7 L (28.0-33.3) pg MCHC 29.9 L (31.6-35.5) g/dL RDW 14.5 (11.5-14.5) % Plt Count 185 (140-400) K/mcL MPV 9.6 (9.4-12.4) fL Immature Gran % 0.3 (0-4) % Seg Neutrophils % 63.2 % Lymphocytes % 20.9 % Monocytes % 13.4 % Eosinophils % 1.7 % Basophils % 0.5 % Neutrophils # 3.6 (1.6-8.9) K/mcL Lymphocytes # 1.2 (0.6-4.6) K/mcL Monocytes # 0.8 (0.0-1.3) K/mcL Eosinophils # 0.1 (0.0-0.6) K/mcL Basophils # 0.0 (0.0-0.2) K/mcL PT (9.4-12.1) Seconds INR Sodium 137 (136-145) mEq/L Potassium 4.0 (3.5-5.1) mEq/L Chloride 97 L (98-107) mEq/L Carbon Dioxide 36 H (23-29) mEq/L BUN 10 (8-23) mg/dL Creatinine 0.64 L (0.70-1.30) mg/dL Est GFR ( Amer) > 60 (> 60) Est GFR (Non-Af Amer) > 60 (> 60) BUN/Creatinine Ratio 16 (6-26) Glucose 138 H (70-105) mg/dL Calculated Osmolality 285 (280-300) Calcium 8.9 (8.6-10.3) mg/dL Troponin I < 0.03 (< 0.04) ng/mL B-Natriuretic Peptide 206 H (Less than 100) pg/mL 02/27/19 Range/Units 15:19 WBC (4.3-11.1) K/mcL RBC (4.19-5.50) M/mcL Hgb (12.9-16.9) g/dL Hct (37.5-50.1) % MCV (83.0-100.0) fL MCH (28.0-33.3) pg MCHC (31.6-35.5) g/dL RDW (11.5-14.5) % Plt Count (140-400) K/mcL MPV (9.4-12.4) fL Immature Gran % (0-4) % Seg Neutrophils % % Lymphocytes % % Monocytes % % Eosinophils % % Basophils % % Neutrophils # (1.6-8.9) K/mcL Lymphocytes # (0.6-4.6) K/mcL Monocytes # (0.0-1.3) K/mcL Eosinophils # (0.0-0.6) K/mcL Basophils # (0.0-0.2) K/mcL PT 16.4 H (9.4-12.1) Seconds INR 1.5 Sodium (136-145) mEq/L Potassium (3.5-5.1) mEq/L Chloride (98-107) mEq/L Carbon Dioxide (23-29) mEq/L BUN (8-23) mg/dL Creatinine (0.70-1.30) mg/dL Est GFR ( Amer) (> 60) Est GFR (Non-Af Amer) (> 60) BUN/Creatinine Ratio (6-26) Glucose (70-105) mg/dL Calculated Osmolality (280-300) Calcium (8.6-10.3) mg/dL Troponin I (< 0.04) ng/mL B-Natriuretic Peptide (Less than 100) pg/mL - Radiology Data Radiology results reviewed: Yes I reviewed the patient's radiology results. Single view chest x-rays performed. This demonstrates a mild increase interstitial markings without effusion, focal infiltrate, pneumothorax or overt failure. Cardiac silhouette is borderline enlarged. In comparison to previous films the patient's interstitial markings appear chronic. There is a pacemaker present in the left upper chest with intact wires. He does have midline sternotomy wires in his prior procedures. This is on my interpretation. Impressions Chest X-Ray 02/27/19 14:47 IMPRESSION: Cardiomegaly and mild pulmonary edema with small bilateral pleural effusions compatible with CHF. Pulmonary edema has worsened compared to prior study. D/ / Willie Ludwig MD / Willie Ludwig MD Interpreting Provider: Willie Ludwig MD - EKG Data EKG attestation: Yes I reviewed and interpreted this EKG. EKG results narrative: EKG demonstrates a paced rhythm with a rate of 70. There are no acute ST or T- wave changes to suggest ischemia or infarction. This is on my interpretation.
[2019-02-27 15:29] LABS: Basophils % 0.5 %; Eosinophils # 0.1 K/mcL (0.0-0.6); Eosinophils % 1.7 %; Hematocrit 29.4 % (37.5-50.1); Hemoglobin 8.8 g/dL (12.9-16.9); Immature Granulocytes % 0.3 % (0-4); Lymphocytes # 1.2 K/mcL (0.6-4.6); Lymphocytes % 20.9 %; Mean Corpuscular HGB Conc 29.9 g/dL (31.6-35.5); Mean Corpuscular Hemoglobin 25.7 pg (28.0-33.3); Mean Platelet Volume 9.6 fL (9.4-12.4); Monocytes # 0.8 K/mcL (0.0-1.3); Monocytes % 13.4 %; Neutrophils # 3.6 K/mcL (1.6-8.9); Platelet Count 185 K/mcL (140-400); Red Blood Count 3.42 M/mcL (4.19-5.50); Red Cell Distribution Width 14.5 % (11.5-14.5); Segmented Neutrophils % 63.2 %
[2019-02-27 15:34] LABS: INR 1.5; Prothrombin Time 16.4 Seconds (9.4-12.1)
[2019-02-27 15:45] LABS: BUN/Creatinine Ratio 16 (6-26); Blood Urea Nitrogen 10 mg/dL (8-23); Calcium 8.9 mg/dL (8.6-10.3); Carbon Dioxide 36 mEq/L (23-29); Chloride 97 mEq/L (98-107); Glucose 138 mg/dL (70-105); Osmolality,Calculated 285 (280-300); Sodium 137 mEq/L (136-145); Troponin I < 0.03 ng/mL (< 0.04); eGFR For Non-African Americans > 60 (> 60)
[2019-02-27] MEDS ORDERED: Furosemide 40 MG/4 ML VIAL IVP ONE (16:47)
[2019-02-27] MEDS ORDERED: Albuterol 2.5 MG/3 ML NEBULIZER IH PRN (17:31)
[2019-02-27] MEDS ORDERED: Naloxone 0.4 MG/ML INJ IVP PRN (17:31)
[2019-02-27] MEDS ORDERED: Ondansetron 4 MG/2 ML VIAL IVP PRN (17:31)
[2019-02-27] MEDS ORDERED: Dextrose Gel 15 GM/37.5 ML TUBE PO PRN ×2 (17:31)
[2019-02-27] MEDS ORDERED: *HR* Dextrose 50 % in Water (Vial) 50 ML VIAL IVP PRN (17:31)
[2019-02-27] MEDS ORDERED: D5% in Water 1,000 ML IVC PRN (17:31)
[2019-02-27] MEDS ORDERED: MOM Conc 10 ML UD.LIQ PO PRN (17:31)
[2019-02-27] MEDS ORDERED: Mag Hydrox/Al Hydrox/Simeth 30 ML UDC PO PRN (17:31)
[2019-02-27] MEDS: Apixaban 5 MG TABLET PO SCH (20:26)
[2019-02-27] MEDS ORDERED: traZODone 50 MG TABLET PO PRN (21:36)
[2019-02-27 21:45] LABS: Iron 30 mcg/dL (65-175)
[2019-02-27] MEDS: Ipratropium/Albuterol Neb 3 ML IH SCH (21:57)
[2019-02-27 22:02] LABS: Ferritin 15 ng/mL (20-250)
[2019-02-28] MEDS ORDERED: Nitroglycerin 0.4 MG TAB.SUBL SL PRN (00:48)
[2019-02-28 00:59] LABS: Folate 12.6 ng/mL (3.0-16.0)
[2019-02-28] MEDS: Ipratropium/Albuterol Neb 3 ML IH SCH ×2 (04:35→10:00)
[2019-02-28 05:51] LABS: Basophils % 0.6 %; Eosinophils # 0.1 K/mcL (0.0-0.6); Hematocrit 27.4 % (37.5-50.1); Hemoglobin 8.4 g/dL (12.9-16.9); Immature Granulocytes % 0.3 % (0-4); Lymphocytes # 1.2 K/mcL (0.6-4.6); Lymphocytes % 17.6 %; Mean Corpuscular HGB Conc 30.7 g/dL (31.6-35.5); Mean Corpuscular Volume 84.8 fL (83.0-100.0); Mean Platelet Volume 9.9 fL (9.4-12.4); Monocytes # 0.9 K/mcL (0.0-1.3); Monocytes % 13.6 %; Neutrophils # 4.5 K/mcL (1.6-8.9); Platelet Count 195 K/mcL (140-400); Red Blood Count 3.23 M/mcL (4.19-5.50); Red Cell Distribution Width 14.6 % (11.5-14.5); Segmented Neutrophils % 65.9 %
[2019-02-28 06:10] LABS: BUN/Creatinine Ratio 18 (6-26); Blood Urea Nitrogen 10 mg/dL (8-23); Calcium 8.7 mg/dL (8.6-10.3); Carbon Dioxide 36 mEq/L (23-29); Chloride 99 mEq/L (98-107); Glucose 109 mg/dL (70-105); Osmolality,Calculated 290 (280-300); Potassium 3.5 mEq/L (3.5-5.1); Sodium 140 mEq/L (136-145); eGFR For Non-African Americans > 60 (> 60)
[2019-02-28] MEDS ORDERED: Furosemide 40 MG/4 ML VIAL IVP ONE (07:00)
[2019-02-28] MEDS: Insulin LISPRO 300 UNITS/3 ML VIAL SQ SCH ×3 (08:02→16:05)
[2019-02-28] MEDS ORDERED: Aspirin Enteric Coated 81 MG Tablet PO SCH ×2 (09:00→12:24)
[2019-02-28] MEDS: Apixaban 5 MG TABLET PO SCH ×2 (10:27→20:12)
[2019-02-28] MEDS: Cholecalciferol (D-3) 1,000 UNIT TABLET PO SCH (10:28)
--- NOTE | 2019-02-28 12:32 | Internal Med History&Physical ---
Date of Encounter: 02/28/19 Time of Encounter: 11:30 Assessment and Plan (1) Acute exacerbation of congestive heart failure Current visit: Yes Status: Acute Echocardiogram has been ordered. IV Lasix was given in emergency room. Medications will be adjusted. Qualifiers: Heart failure type: unspecified Qualified Code(s): I50.9 - Heart failure, unspecified (2) Anemia Current visit: Yes Status: Acute He has been on ferrous sulfate at the assisted living with worsening anemia for several weeks. IV iron dextran will be given. Qualifiers: Anemia type: iron deficiency Iron deficiency anemia type: unspecified iron deficiency Qualified Code(s): D50.9 - Iron deficiency anemia, unspecified (3) Hypertension Current visit: Yes Status: Chronic Continue Betapace and diuretic. Qualifiers: Hypertension type: essential hypertension Qualified Code(s): I10 - Essential (primary) hypertension (4) Paroxysmal atrial fibrillation Current visit: No Status: Acute Continue Eliquis and sotalol. (5) DM type 2 (diabetes mellitus, type 2) Current visit: No Status: Chronic Hemoglobin A1c was 7.3% on 01/03/2019. Continue Amaryl. He has had GI upset using metformin. Qualifiers: Diabetes mellitus ferry terminal agent insulin use: without ferry terminal agent use Diabetes mellitus complication status: without complication Qualified Code(s): E11.9 - Type 2 diabetes mellitus without complications (6) Gout Current visit: No Status: Chronic Uric acid level was 5.2 on 01/26/2019. Continue to observe without medication at this time. Qualifiers: Gout site: unspecified site Gout etiology: unspecified cause Chronicity: chronic Presence of tophus: without tophus Qualified Code(s): M1A.9XX0 - Chronic gout, unspecified, without tophus (tophi) (7) ASHD (arteriosclerotic heart disease) Current visit: Yes Status: Acute Continue Plavix and Eliquis. Increase Imdur and decrease aspirin to avoid worsening GI bleed. (8) Anxiety and depression Current visit: No Status: Chronic Continue Klonopin, Zoloft, and Trileptal. Internal Medicine - H&P: HPI Chief complaint: Dyspnea Admitted From: Emergency Dept Plans for Post Hospital Care: Home History of present illness: Mr. Ogden is a 83 year old male who was sent to emergency room after he complained of increased dyspnea. Reports the onset was approximately 2-3 weeks earlier. He had documented gradual decrease in hemoglobin and [place] BN peptide was preceding 2 weeks. He was evaluated emergency room was felt to have exacerbation of heart failure. He was admitted to [facility] floor for ongoing care needs. He has history of hypertension and known ASHD status post 3 vessel CABG 1980 and 4 vessel CABG 1996. He had PTCA with single stent placed 2005. Most recent heart catheter was November 2016 at [facility] without intervention done. He was told he had adequate collaterals. He has history of atrial fib/flutter and was cardioverted October 2015 at [facility] and was given Xarelto. He has generally remained in normal sinus rhythm but states he had episodes within the last 2 weeks when his heart rate would "shoot up" to 150/m for very brief intervals. He states Xarelto was discontinued during a September 2017 hospitalization in [place] for congestive heart failure and pneumonia. He is now on Eliquis and aspirin. He reports a permanent pacemaker was placed May 2018 at [facility]. He had a left carotid endarterectomy in 2014. He denies [place] or pulmonary embolus. He reports he had a DVT in his left ankle 2017. He does not recall a diagnosis of heart failure. Past Med Surg Social Fam HX - Past Medical History Medical history: atrial fibrillation, CHF, COPD, coronary artery disease, CVA, diabetes, GERD, hyperlipidemia, hypertension Additional medical history: HAD A NOSE BLEED WHILE HE WAS IN [place] WHICH WAS CAUTERIZED. HAD AN EPISODE THIS PM. MULTIPLE CARDIAC BYPASSES, SEVERAL CARDIAC STENTS. bph Psychiatric history: anxiety - Past Surgical History Surgical History: angioplasty/stent, cholecystectomy, coronary bypass (CABG), herniorrhaphy, prostatectomy, pacemaker Additional surgical history: Prostate surgery x 2 - Social History Smoking Status: Never smoker Smokeless Tobacco Status: No Alcohol use: none Drug use: none - Family History Father Family Member Ethnicity: Non- Living Status: Mother Family Member Ethnicity: Non- Living Status: Hx Family Cardiac Disorders: Yes Hx Family Neurologic Disorders: Yes Internal Medicine - H&P: Meds Atorvastatin [Lipitor] 40 mg PO HS 10/11/15 [History] Finasteride [Proscar] 5 mg PO DAILY 10/11/15 [History] Glimepiride [Amaryl] 1 mg PO DAILY 10/11/15 [History] Montelukast [Singulair] 10 mg PO DAILY 10/11/15 [History] Nitroglycerin [Nitrostat] 0.4 mg PO Q5-6MIN PRN 07/15/17 [History] Roflumilast [Daliresp] 500 mcg PO DAILY 07/15/17 [History] Aspirin [Lo-Dose Aspirin EC] 81 mg PO DAILY 03/02/18 [History] Furosemide [Lasix] 40 mg PO DAILY 03/02/18 [History] Potassium Chloride 20 meq PO DAILY 03/02/18 [History] Sotalol [Betapace] 80 mg PO Q12HR 03/02/18 [History] Dulera 200 Mcg/5 Mcg Inhaler 1 puff IH BID 05/24/18 [History] OXcarbazepine [Trileptal] 150 mg PO BID 05/24/18 [History] clonazePAM [Clonazepam] 0.25 mg PO BID 05/24/18 [History] Trazodone HCl 100 mg PO HS #30 tablet 05/25/18 [Rx] Apixaban [Eliquis] 5 mg PO BID 12/28/18 [History] Ferrous Sulfate [Iron] 325 mg PO DAILY 12/28/18 [History] Clopidogrel [Plavix] 75 mg PO DAILY #30 tablet 12/29/18 [Rx] Isosorbide MONOnitrate (24 HR) [Imdur] 60 mg PO DAILY #30 tab.er.24h 12/29/18 [Rx] Pantoprazole Sodium [Protonix] 20 mg PO DAILY PRN #0 12/29/18 [Rx] Cholecalciferol (Vitamin D3) [Vitamin D] 1,000 unit PO DAILY 02/14/19 [History] Sertraline [Zoloft] 50 mg PO DAILY 02/14/19 [History] Allergy/AdvReac Type Severity Reaction Status Date / Time No Known Allergies Allergy Verified 02/14/19 09:27 All Systems PM: A 10-system review of systems was performed and is negative for pertinent findings except as documented above in the HPI. Review of systems: Review of systems from December 2018 [facility] hospitalization were reviewed and revised as below. Gen.: His weight has lecture rated from approximately 96 kg at the November 2015 [facility] hospitalization to 91.626 kg December 2018 to 95.254 kg at present Cardiovascular: As per history of present illness Respiratory: He smoked from age [age] up to 2 packs per day. He had pulmonary function tests December 2015 which showed severe COPD. FEV1/FVC was 50%. His FEV1 had significant improvement postbronchodilator. He had elevated RV consistent with air trapping. His DLCO was 28% corrected. He does not use supplemental oxygen at assisted living. GI: He has had cholecystectomy. He has GERD but denies disorders of his liver or exocrine pancreas. He has had bilateral inguinal hernia repair. He had EGD, colonoscopy, and capsule endoscopy October 2017 in [place] for blood loss anemia. He states no pathology was found to explain the blood loss. : He has had stones in his kidney and bladder in the past. He has BPH. 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 He denies other large distribution strokes or seizures. He has benign essential tremor. Endocrine: He was diagnosed with DM 2 approximately 1984. Hemoglobin A1c was 7.4% on 12/25/2018. He has hyperlipidemia but no known thyroid disease Hematology/oncology: He denies blood disorders cancers or anemia Psychiatric: He was hospitalized at [facility] early 2017 for anxiety and depression. [place] skeletal: Has history of gout but denies other bone joint or muscle disorders. - Constitutional Vitals: Temp Pulse Resp BP Pulse Ox 97.7 F 84 20 139/78 89 02/28/19 10:58 02/28/19 10:58 02/28/19 10:58 02/28/19 10:58 02/28/19 10:58 Exam: Gen.: He is a well-developed well-nourished male resting comfortably in bed who appears minimally dyspneic at rest HEENT: Head is atraumatic and normocephalic. Eyes: EOMI. There is no scleral i cterus. Mouth: Mucosa is moist. Neck: Supple and nontender. There is no thyromegaly or adenopathy noted. Heart: Regular without murmurs gallops or ectopics Lungs: No wheezes or crackles are heard. Abdomen: Soft and nontender. No masses or guarding are noted. Extremities: There is no cyanosis or clubbing noted. He has 1-2+ edema of the dorsum of the feet and lower legs bilaterally. Dorsalis pedis and posterior tibial pulses are not palpable. His feet are warm to touch. Neurologic: Mental status: He is talkative and a good historian. Cranial nerves: Smile is symmetric. Forehead wrinkles bilaterally. Tongue protrudes midline. EOMI. Motor: There is no pronator drift. Cerebellar: Finger to nose is intact bilaterally. Skin: Warm and dry Internal Med - H&P Results - Labs CBC & Chem 7: 02/28/19 05:04 02/28/19 05:04 Labs: Short CBC 02/27/19 02/28/19 Range/Units 15:19 05:04 WBC 5.7 6.9 (4.3-11.1) K/mcL Hgb 8.8 L 8.4 L (12.9-16.9) g/dL Hct 29.4 L 27.4 L (37.5-50.1) % Plt Count 185 195 (140-400) K/mcL Neutrophils # 3.6 4.5 (1.6-8.9) K/mcL BMP 02/27/19 02/28/19 15:19 05:04 Sodium 137 140 Potassium 4.0 3.5 Chloride 97 L 99 Carbon Dioxide 36 H 36 H BUN 10 10 Creatinine 0.64 L 0.55 L Glucose 138 H 109 H Calcium 8.9 8.7 Cardiac Enzymes 02/27/19 Range/Units 15:19 Troponin I < 0.03 (< 0.04) ng/mL - Impressions ITS Impressions Chest X-Ray 02/27/19 14:47 IMPRESSION: Cardiomegaly and mild pulmonary edema with small bilateral pleural effusions compatible with CHF. Pulmonary edema has worsened compared to prior study. D/ / Willie Ludwig MD / Willie Ludwig MD Interpreting Provider: Willie Ludwig MD
[2019-02-28] MEDS ORDERED: Iron Dextran Complex 1,500 MG in 0.9 % Sodium Chloride 500 ML IVPB ONE (13:30)
[2019-02-28] MEDS: OXcarbazepine 150 MG TABLET PO SCH ×2 (13:43→20:14)
[2019-02-28] MEDS: Finasteride 5 MG TABLET PO SCH (13:43)
[2019-02-28] MEDS: Bumetanide 1 MG TABLET PO SCH (13:43)
[2019-02-28] MEDS: Isosorbide MONOnitrate (24 HR) 60 MG TAB.ER.24H PO SCH (13:53)
--- NOTE | 2019-02-28 18:02 | Electrocardiograph Report ---
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
[2019-02-28] MEDS ORDERED: Dextrose Gel 15 GM/37.5 ML TUBE PO PRN ×2 (19:31)
[2019-02-28] MEDS ORDERED: *HR* Dextrose 50 % in Water (Syg) 50 ML SYRINGE IVP PRN (19:31)
[2019-02-28] MEDS ORDERED: D5% in Water 1,000 ML IVC PRN (19:31)
[2019-02-28] MEDS: clonazePAM 0.5 MG TABLET PO SCH (20:14)
[2019-02-28] MEDS ORDERED: traZODone 50 MG TABLET PO SCH (21:00)
[2019-02-28] MEDS ORDERED: Insulin LISPRO 300 UNITS/3 ML VIAL SQ SCH (21:00)
[2019-02-28] MEDS: Budesonide/Formoterol 160/4.5 1 PUFF INH IH SCH (21:51)
[2019-03-01] MEDS ORDERED: *HR* Glimepiride 2 MG TABLET PO SCH (08:00)
[2019-03-01] MEDS: Insulin LISPRO 300 UNITS/3 ML VIAL SQ SCH ×2 (08:45→13:18)
[2019-03-01] MEDS: Cholecalciferol (D-3) 1,000 UNIT TABLET PO SCH (09:01)
[2019-03-01] MEDS: Budesonide/Formoterol 160/4.5 1 PUFF INH IH SCH (09:01)
[2019-03-01] MEDS: Apixaban 5 MG TABLET PO SCH (09:02)
[2019-03-01] MEDS: clonazePAM 0.5 MG TABLET PO SCH (09:02)
[2019-03-01] MEDS: Finasteride 5 MG TABLET PO SCH (09:02)
[2019-03-01] MEDS: OXcarbazepine 150 MG TABLET PO SCH (09:03)
[2019-03-01] MEDS: Isosorbide MONOnitrate (24 HR) 60 MG TAB.ER.24H PO SCH (09:03)
[2019-03-01] MEDS: Bumetanide 1 MG TABLET PO SCH (09:03)
[2019-03-01 13:00] LABS: Basophils % 0.5 %; Eosinophils # 0.1 K/mcL (0.0-0.6); Eosinophils % 1.6 %; Hematocrit 28.5 % (37.5-50.1); Hemoglobin 8.6 g/dL (12.9-16.9); Immature Granulocytes % 0.5 % (0-4); Lymphocytes # 1.1 K/mcL (0.6-4.6); Lymphocytes % 16.8 %; Mean Corpuscular HGB Conc 30.2 g/dL (31.6-35.5); Mean Corpuscular Hemoglobin 26.1 pg (28.0-33.3); Mean Corpuscular Volume 86.6 fL (83.0-100.0); Mean Platelet Volume 9.5 fL (9.4-12.4); Monocytes # 0.8 K/mcL (0.0-1.3); Neutrophils # 4.3 K/mcL (1.6-8.9); Platelet Count 196 K/mcL (140-400); Red Blood Count 3.29 M/mcL (4.19-5.50); Red Cell Distribution Width 14.6 % (11.5-14.5); Segmented Neutrophils % 68.6 %
[2019-03-01 13:08] LABS: Alanine Aminotransferase 11 Units/L (7-52); Albumin 3.5 g/dL (3.5-5.7); Albumin/Globulin Ratio 1.6 (1.1-2.2); Alkaline Phosphatase 74 Units/L (34-104); Aspartate Amino Transferase 11 Units/L (13-39); BUN/Creatinine Ratio 16 (6-26); Bilirubin,Total 0.3 mg/dL (0.3-1.0); Blood Urea Nitrogen 11 mg/dL (8-23); Calcium 9.2 mg/dL (8.6-10.3); Carbon Dioxide 37 mEq/L (23-29); Chloride 97 mEq/L (98-107); Globulin 2.2 g/dL (2.4-3.5); Glucose 165 mg/dL (70-105); Osmolality,Calculated 289 (280-300); Sodium 138 mEq/L (136-145); Total Protein 5.7 g/dL (6.4-8.9); eGFR For Non-African Americans > 60 (> 60)
[2019-03-01 14:13] VITALS: BP 106/57
--- NOTE | 2019-03-01 14:34 | Discharge Summary ---
Date of Encounter: 03/01/19 Time of Encounter: 14:20 - Discharge Diagnosis (1) Acute exacerbation of congestive heart failure Priority: Primary Status: Acute Qualifiers: Heart failure type: unspecified Qualified Code(s): I50.9 - Heart failure, unspecified (2) Anemia Priority: Secondary Status: Acute Qualifiers: Anemia type: iron deficiency Iron deficiency anemia type: unspecified iron deficiency Qualified Code(s): D50.9 - Iron deficiency anemia, unspecified (3) Hypertension Priority: Secondary Status: Chronic Qualifiers: Hypertension type: essential hypertension Qualified Code(s): I10 - Essential (primary) hypertension (4) Paroxysmal atrial fibrillation Priority: Secondary Status: Chronic (5) DM type 2 (diabetes mellitus, type 2) Priority: Secondary Status: Chronic Qualifiers: Diabetes mellitus terminal block assembler insulin use: without terminal block assembler use Diabetes mellitus complication status: without complication Qualified Code(s): E11.9 - Type 2 diabetes mellitus without complications (6) Gout Priority: Secondary Status: Chronic Qualifiers: Gout site: unspecified site Gout etiology: unspecified cause Chronicity: chronic Presence of tophus: without tophus Qualified Code(s): M1A.9XX0 - Chronic gout, unspecified, without tophus (tophi) (7) ASHD (arteriosclerotic heart disease) Priority: Secondary Status: Chronic (8) Anxiety and depression Priority: Secondary Status: Chronic Hospital course: Mr. Ogden is a 83 year old male who was sent to emergency room after he complained of increased dyspnea. Reports the onset was approximately 2-3 weeks earlier. He had documented gradual decrease in hemoglobin and [place] BN peptide was preceding 2 weeks. He was evaluated emergency room was felt to have exacerb ation of heart failure. He was admitted to [facility] floor for ongoing care needs. Initial orders were written by the emergency room physician. I saw him on February 28 and performed the history and physical. He was given IV Lasix in emergency room. He was started on oral Bumex instead of oral Lasix. Imdur was increased to 120 mg daily. He had good response to treatment with BN peptide decreasing to 132 by day of discharge. He will continue this regimen at the [facility]. Aspirin was decreased to 81 mg every other day. He will continue this reduced dose at discharge. He will continue daily Eliquis and Plavix for ASHD. Labs will be monitored at the [facility]. Anemia testing showed iron 30, ferritin 15, B12 577, and folate 12.6. He was given iron dextran infusion. He will continue oral ferrous sulfate with ascorbic acid at discharge and labs will be monitored. Echocardiogram was ordered to further evaluate elevated BN peptide. It was technically challenging with inadequate quality imaging achieved. There appeared to be grossly normal LV systolic function without estimated LVEF recorded. There was indeterminate diastolic function. There was mild tricuspid regurgitation. Estimated RVSP was minimally elevated at 38 mmHg. On March 01 he felt stable for discharge back to [facility] assisted living. He will follow with me there. Room air oximetry will be checked on 6 minute walk prior to discharge. - Time Spent with Patient Total time spent providing and/or coordinating discharge services: - Discharge Medications Prescriptions: New Isosorbide MONOnitrate (24 HR) [Imdur] 120 mg PO DAILY tab.er.24h Bumetanide [Bumex] 1 mg PO DAILY tablet Aspirin Enteric Coated [Aspirin EC] 81 mg PO Q48H tablet.dr Looney Montelukast [Singulair] 10 mg PO DAILY Atorvastatin [Lipitor] 40 mg PO HS Glimepiride [Amaryl] 1 mg PO DAILY Finasteride [Proscar] 5 mg PO DAILY Nitroglycerin [Nitrostat] 0.4 mg PO Q5-6MIN PRN PRN Reason: Chest Pain Roflumilast [Daliresp] 500 mcg PO DAILY Potassium Chloride 20 meq PO DAILY Sotalol [Betapace] 80 mg PO Q12HR clonazePAM [Clonazepam] 0.25 mg PO BID OXcarbazepine [Trileptal] 150 mg PO BID Dulera 200 Mcg/5 Mcg Inhaler 1 puff IH BID Trazodone HCl 100 mg PO HS #30 tablet Apixaban [Eliquis] 5 mg PO BID Ferrous Sulfate [Iron] 325 mg PO DAILY Clopidogrel [Plavix] 75 mg PO DAILY #30 tablet Pantoprazole Sodium [Protonix] 20 mg PO DAILY PRN #0 PRN Reason: Dyspepsia Sertraline [Zoloft] 50 mg PO DAILY Cholecalciferol (Vitamin D3) [Vitamin D3] 1,000 unit PO DAILY Discontinued Furosemide [Lasix] 40 mg PO DAILY Aspirin [Lo-Dose Aspirin EC] 81 mg PO DAILY Isosorbide MONOnitrate (24 HR) [Imdur] 60 mg PO DAILY #30 tab.er.24h Home Medications: Atorvastatin [Lipitor] 40 mg PO HS 10/11/15 [History] Finasteride [Proscar] 5 mg PO DAILY 10/11/15 [History] Glimepiride [Amaryl] 1 mg PO DAILY 10/11/15 [History] Montelukast [Singulair] 10 mg PO DAILY 10/11/15 [History] Nitroglycerin [Nitrostat] 0.4 mg PO Q5-6MIN PRN 07/15/17 [History] Roflumilast [Daliresp] 500 mcg PO DAILY 07/15/17 [History] Potassium Chloride 20 meq PO DAILY 03/02/18 [History] Sotalol [Betapace] 80 mg PO Q12HR 03/02/18 [History] Dulera 200 Mcg/5 Mcg Inhaler 1 puff IH BID 05/24/18 [History] OXcarbazepine [Trileptal] 150 mg PO BID 05/24/18 [History] clonazePAM [Clonazepam] 0.25 mg PO BID 05/24/18 [History] Trazodone HCl 100 mg PO HS #30 tablet 05/25/18 [Rx] Apixaban [Eliquis] 5 mg PO BID 12/28/18 [History] Ferrous Sulfate [Iron] 325 mg PO DAILY 12/28/18 [History] Clopidogrel [Plavix] 75 mg PO DAILY #30 tablet 12/29/18 [Rx] Pantoprazole Sodium [Protonix] 20 mg PO DAILY PRN #0 12/29/18 [Rx] Cholecalciferol (Vitamin D3) [Vitamin D3] 1,000 unit PO DAILY 02/14/19 [History] Sertraline [Zoloft] 50 mg PO DAILY 02/14/19 [History] Aspirin Enteric Coated [Aspirin EC] 81 mg PO Q48H tablet. 03/01/19 [Rx] Bumetanide [Bumex] 1 mg PO DAILY tablet 03/01/19 [Rx] Isosorbide MONOnitrate (24 HR) [Imdur] 120 mg PO DAILY tab.er.24h 03/01/19 [Rx] Allergies/Adverse Reactions: Allergy/AdvReac Type Severity Reaction Status Date / Time No Known Allergies Allergy Verified 02/14/19 09:27 Date of admission: 02/27/19 16:58 Primary care physician: Dorian Cole MD Consults: 02/27/19 18:15 Consult to Psychologist Research Assistant [CONS] Routine Reason for SW Consult: Patient from assisted living ([facility]). - Constitutional Vitals: Temp Pulse Resp BP Pulse Ox 97.8 F 73 20 106/57 96 03/01/19 14:06 03/01/19 14:06 03/01/19 14:06 03/01/19 14:06 03/01/19 14:06 - Patient Status Disposition: Home, Self-Care Condition: Fair - Discharge Instructions Follow Up With: Dorian Cole MD [Primary Care Provider] - 1 week - Diet and Activity Activity: resume usual activities as tolerated Diet: diabetic diet
== END 2019-03-01 15:55 | disposition home or self-care (01) ==
LOC: EMEROOPIK 14:46 → INPPIK 14:46
PROVIDERS: ADMIT Internal Medicine; ATTEND Internal Medicine

== ENCOUNTER 2019-04-14 11:21 | Observation (INO) ==
[2019-04-14] MEDS ORDERED: Furosemide 40 MG/4 ML VIAL IVP ONE (11:27)
--- NOTE | 2019-04-14 11:27 | Emergency Department Note ---
Disposition Clinical Impression: Congestive heart failure Qualifiers: Heart failure type: unspecified Heart failure chronicity: acute on chronic Qualified Code(s): I50.9 - Heart failure, unspecified Disposition: Admitted As Inpatient Condition: Fair Time of Disposition: 12:25 SOB HPI - General Chief Complaint: ED Shortness of Breath/Dyspnea Stated Complaint: SHORTNESS OF BREATH, COUGH Time Seen by Provider: 04/14/19 11:22 Source: patient, EMS Mode of arrival: EMS Limitations: no limitations Nursing Notes Reviewed: Yes Vital Signs Reviewed: Yes - History of Present Illness Patient presents stating that since yesterday evening he has had increased shortness of breath as well as a cough. States he slept poorly over the night was not able to lay flat. He has had crackles, rattling and radials and a wet cough. He states his heart rate was getting up to about 100. He does not know about his oxygenation. The cough has been occasionally productive but he does not really look at it. He does note that his legs are more swollen than usual but no lower extremity pain. Denies fevers or chills or feeling of palpitation. He does believe this feels similar to what he has had before with CHF. States he is on furosemide 80 mg he does urinate frequently. He has not had recent change of his medicines. He states his only chest discomfort is with a cough. [facility] and is DNR CC arrest. Pt Subjective Complaint: shortness of breath, cough Onset (ago): day(s) (1) Severity: moderate Consistency/Duration: gradually worsening Improves with: rest Worsens with: lying flat, coughing Known history of: congestive heart failure Associated symptoms: Reports: chest pain (With coughing), cough, sputum production, orthopnea. Denies: pain with inspiration, fever, wheezing, lower extremity pain, polyuria, polydipsia, parasthesias, palpitations, hemoptysis, diaphoresis, nausea/vomiting, syncope, abdominal pain, rash Cough present: Yes Cough Description: Moist Cough Frequency: Intermittent Sputum production: Yes Sputum Amount: Scant - Related Data Home Medications Medication Instructions Recorded Confirmed Atorvastatin [Lipitor] 40 mg PO HS 10/11/15 04/14/19 Finasteride [Proscar] 5 mg PO DAILY 10/11/15 04/14/19 Glimepiride [Amaryl] 1 mg PO DAILY 10/11/15 04/14/19 Montelukast [Singulair] 10 mg PO DAILY 10/11/15 04/14/19 Nitroglycerin [Nitrostat] 0.4 mg PO Q5-6MIN PRN 07/15/17 04/14/19 Roflumilast [Daliresp] 500 mcg PO DAILY 07/15/17 04/14/19 Potassium Chloride 20 meq PO DAILY 03/02/18 04/14/19 Sotalol [Betapace] 80 mg PO Q12HR 03/02/18 04/14/19 Dulera 200 Mcg/5 Mcg Inhaler 1 puff IH BID 05/24/18 04/14/19 OXcarbazepine [Trileptal] 150 mg PO BID 05/24/18 04/14/19 clonazePAM [Clonazepam] 0.25 mg PO BID 05/24/18 04/14/19 Apixaban [Eliquis] 5 mg PO BID 12/28/18 04/14/19 Ferrous Sulfate [Iron] 325 mg PO DAILY 12/28/18 04/14/19 Cholecalciferol (Vitamin D3) 1,000 unit PO DAILY 02/14/19 04/14/19 [Vitamin D3] Sertraline [Zoloft] 50 mg PO DAILY 02/14/19 04/14/19 Bumetanide [Bumex] 2 mg PO DAILY 03/11/19 04/14/19 Albuterol Neb [AccuNeb] 0.63 mg IH QID PRN 04/14/19 04/14/19 Ascorbic Acid [Vitamin C] 500 mg PO DAILY 04/14/19 04/14/19 Aspirin [Lo-Dose Aspirin EC] 81 mg PO DAILY 04/14/19 04/14/19 Sodium Chloride/Sodium Bicarb 2 spray NS PRN PRN 04/14/19 04/14/19 [Nasa Mist Saline [place]] Previous Rx's Medication Instructions Recorded Trazodone HCl 100 mg PO HS #30 tablet 05/25/18 Pantoprazole Sodium [Protonix] 20 mg PO DAILY PRN #0 12/29/18 Isosorbide MONOnitrate (24 HR) 120 mg PO DAILY tab.er.24h 03/01/19 [Imdur] Allergies Allergy/AdvReac Type Severity Reaction Status Date / Time No Known Allergies Allergy Verified 02/14/19 09:27 All systems ED: reviewed and negative except as stated. Past Medical History - Past Medical History Attestation: Yes The following information was validated with the patient. Source: patient, old records reviewed, nursing notes reviewed Medical history: Reports: atrial fibrillation, CHF, COPD, coronary artery disease, CVA, diabetes, GERD, hyperlipidemia, hypertension Surgical history: Reports: angioplasty/stent, cholecystectomy, coronary bypass (CABG), herniorrhaphy, prostatectomy, pacemaker Psychiatric history: Reports: anxiety - Social History Smoking Status: Never smoker Smokeless Tobacco Status: No Alcohol use: Reports: none Drug use: Reports: none Physical Exam - General Limitations: no limitations General appearance: alert, anxious, in distress - Head Head exam: atraumatic, normocephalic, normal inspection - Eye Eye exam: Present: normal appearance, PERRL, EOMI - ENT ENT exam: normal exam, normal oropharynx, mucous membranes moist - Neck Neck exam: Present: normal inspection, full ROM, trachea midline - Chest Chest inspection: Present: normal inspection, symmetric chest wall rise. Absent: tenderness - Respiratory Respiratory exam: Present: respiratory distress, other (Persistent coughing and audible rales) - Cardiovascular Cardiovascular exam: Present: regular rate, normal rhythm, normal heart sounds - Abdominal Exam Abdominal exam: Present: soft, Non-Tender, normal bowel sounds. Absent: tenderness, distention, guarding, rebound, rigidity - Extremities Exam Extremities exam: Present: normal inspection, full ROM, normal capillary refill, pedal edema (2+). Absent: tenderness, calf tenderness - Expanded Lower Extremity Exam Neurovascular/Tendon exam: Present: normal capillary refill Gait: not tested/not observed - Neurological Exam Neurological exam: Present: alert, oriented X3 - Psychiatric Psychiatric exam: Present: agitated, anxious - Skin Skin exam: Present: warm, dry, intact, normal color. Absent: cyanosis, diaphoresis, pallor Course Course Narrative: 1215: With return of all testing, care is discussed with Dr. Cole to coordinate continued inpatient diuresis. He attends for acute dysrhythmia, myocardial infarction, anemia or renal failure. No other acute metabolic derangement. His BNP is only marginally elevated. I believe he is stable for this facility. Verbal orders have been obtained for his observation. Vital Signs Temperature 99.6 F 04/14/19 11:23 Pulse Rate 110 04/14/19 11:23 Respiratory Rate 22 04/14/19 11:23 Blood Pressure 175/81 04/14/19 11:23 O2 Sat by Pulse Oximetry 89 04/14/19 11:23 Temperature 99.6 F 04/14/19 11:23 Pulse Rate 114 04/14/19 13:21 Respiratory Rate 20 04/14/19 13:21 Blood Pressure 139/70 04/14/19 13:21 O2 Sat by Pulse Oximetry 93 04/14/19 13:21 Oxygen Delivery Oxygen Delivery Nasal Cannula Shortness of Breath/Dyspnea - Differential Diagnosis Likely: acute exacerbation of chronic obstructive airways disease, congestive heart failure, pneumonia, asthma with exacerbation - Medical Records Medical records reviewed: Yes I reviewed the patient's medical records. Patient was seen with very similar presentation and mid February. He was observed in this facility with the following discharge summary: "Hospital course: Mr. Ogden is a 83 year old male who was sent to emergency room after he complained of increased dyspnea. Reports the onset was approximately 2-3 weeks earlier. He had documented gradual decrease in hemoglobin and [place] BN peptide was preceding 2 weeks. He was evaluated emergency room was felt to have exacerbation of heart failure. He was admitted to [facility] floor for ongoing care needs. Initial orders were written by the emergency room physician. I saw him on February 28 and performed the history and physical. He was given IV Lasix in emergency room. He was started on oral Bumex instead of oral Lasix. Imdur was increased to 120 mg daily. He had good response to treatment with BN peptide decreasing to 132 by day of discharge. He will continue this regimen at the [facility]. Aspirin was decreased to 81 mg every other day. He will continue this reduced dose at discharge. He will continue daily Eliquis and Plavix for ASHD. Labs will be monitored at the [facility]. Anemia testing showed iron 30, ferritin 15, B12 577, and folate 12.6. He was given iron dextran infusion. He will continue oral ferrous sulfate with ascorbic acid at discharge and labs will be monitored. Echocardiogram was ordered to further evaluate elevated BN peptide. It was technically challenging with inadequate quality imaging achieved. There appeared to be grossly normal LV systolic function without estimated LVEF recorded. There was indeterminate diastolic function. There was mild tricuspid regurgitation. Estimated RVSP was minimally elevated at 38 mmHg. On March 01 he felt stable for discharge back to [facility] assisted living. He will follow with me there. Room air oximetry will be checked on 6 minute walk prior to discharge." - Lab Data Lab results reviewed: Yes I reviewed the patient's lab results. Result diagrams: 04/14/19 11:44 04/14/19 11:44 Lab Results 04/14/19 04/14/19 04/14/19 Range/Units 11:44 11:44 11:44 WBC 11.3 H (4.3-11.1) K/mcL RBC 4.61 (4.19-5.50) M/mcL Hgb 12.1 L (12.9-16.9) g/dL Hct 38.7 (37.5-50.1) % MCV 83.9 (83.0-100.0) fL MCH 26.2 L (28.0-33.3) pg MCHC 31.3 L (31.6-35.5) g/dL RDW 15.2 H (11.5-14.5) % Plt Count 204 (140-400) K/mcL MPV 9.5 (9.4-12.4) fL Immature Gran % 0.5 (0-4) % Seg Neutrophils % 83.2 % Lymphocytes % 7.1 % Monocytes % 8.6 % Eosinophils % 0.2 % Basophils % 0.4 % Neutrophils # 9.4 H (1.6-8.9) K/mcL Lymphocytes # 0.8 (0.6-4.6) K/mcL Monocytes # 1.0 (0.0-1.3) K/mcL Eosinophils # 0.0 (0.0-0.6) K/mcL Basophils # 0.1 (0.0-0.2) K/mcL PT 17.8 H (9.4-12.1) Seconds INR 1.6 Sodium 137 (136-145) mEq/L Potassium 3.8 (3.5-5.1) mEq/L Chloride 95 L (98-107) mEq/L Carbon Dioxide 36 H (23-29) mEq/L BUN 10 (8-23) mg/dL Creatinine 0.73 (0.70-1.30) mg/dL Est GFR ( Amer) > 60 (> 60) Est GFR (Non-Af Amer) > 60 (> 60) BUN/Creatinine Ratio 14 (6-26) Glucose 190 H (70-105) mg/dL Calculated Osmolality 288 (280-300) Lactic Acid (0.5-2.2) mmol/L Calcium 9.5 (8.6-10.3) mg/dL Troponin I < 0.03 (< 0.04) ng/mL B-Natriuretic Peptide (Less than 100) pg/mL 04/14/19 04/14/19 Range/Units 11:44 11:44 WBC (4.3-11.1) K/mcL RBC (4.19-5.50) M/mcL Hgb (12.9-16.9) g/dL Hct (37.5-50.1) % MCV (83.0-100.0) fL MCH (28.0-33.3) pg MCHC (31.6-35.5) g/dL RDW (11.5-14.5) % Plt Count (140-400) K/mcL MPV (9.4-12.4) fL Immature Gran % (0-4) % Seg Neutrophils % % Lymphocytes % % Monocytes % % Eosinophils % % Basophils % % Neutrophils # (1.6-8.9) K/mcL Lymphocytes # (0.6-4.6) K/mcL Monocytes # (0.0-1.3) K/mcL Eosinophils # (0.0-0.6) K/mcL Basophils # (0.0-0.2) K/mcL PT (9.4-12.1) Seconds INR Sodium (136-145) mEq/L Potassium (3.5-5.1) mEq/L Chloride (98-107) mEq/L Carbon Dioxide (23-29) mEq/L BUN (8-23) mg/dL Creatinine (0.70-1.30) mg/dL Est GFR ( Amer) (> 60) Est GFR (Non-Af Amer) (> 60) BUN/Creatinine Ratio (6-26) Glucose (70-105) mg/dL Calculated Osmolality (280-300) Lactic Acid 1.6 (0.5-2.2) mmol/L Calcium (8.6-10.3) mg/dL Troponin I (< 0.04) ng/mL B-Natriuretic Peptide 177 H (Less than 100) pg/mL - Radiology Data Radiology results reviewed: Yes I reviewed the patient's radiology results. Single view chest x-ray is performed. This is consistent with cardiomegaly and increased interstitial markings consistent with pulmonary edema. He does not have significant effusion although there appears to be a scant left sided 1. No focal infiltrate or mass. Patient does have a pacemaker in the left upper chest with intact wires. He has wires from previous midline sternotomy. No other acute abnormalities are seen. This is on my interpretation. Impressions Chest X-Ray 04/14/19 11:27 IMPRESSION: Mild congestive heart failure. D/ / Annabella Girard MD / Annabella Girard MD Interpreting Provider: Annabella Girard MD - EKG Data EKG attestation: Yes I reviewed and interpreted this EKG. EKG results narrative: Baseline artifact present. EKG shows normal: Reports: sinus rhythm, QRS complexes, ST-T waves Rate: Reports: tachycardia (110) [place]/QRS: Reports: left axis deviation, IVCD (Borderline)
[2019-04-14 11:50] LABS: Basophils # 0.1 K/mcL (0.0-0.2); Basophils % 0.4 %; Eosinophils % 0.2 %; Hematocrit 38.7 % (37.5-50.1); Hemoglobin 12.1 g/dL (12.9-16.9); Immature Granulocytes % 0.5 % (0-4); Lymphocytes # 0.8 K/mcL (0.6-4.6); Lymphocytes % 7.1 %; Mean Corpuscular HGB Conc 31.3 g/dL (31.6-35.5); Mean Corpuscular Hemoglobin 26.2 pg (28.0-33.3); Mean Corpuscular Volume 83.9 fL (83.0-100.0); Mean Platelet Volume 9.5 fL (9.4-12.4); Monocytes % 8.6 %; Neutrophils # 9.4 K/mcL (1.6-8.9); Platelet Count 204 K/mcL (140-400); Red Blood Count 4.61 M/mcL (4.19-5.50); Red Cell Distribution Width 15.2 % (11.5-14.5); Segmented Neutrophils % 83.2 %; White Blood Count 11.3 K/mcL (4.3-11.1)
[2019-04-14 11:57] LABS: INR 1.6; Prothrombin Time 17.8 Seconds (9.4-12.1)
[2019-04-14 12:08] LABS: BUN/Creatinine Ratio 14 (6-26); Blood Urea Nitrogen 10 mg/dL (8-23); Calcium 9.5 mg/dL (8.6-10.3); Carbon Dioxide 36 mEq/L (23-29); Chloride 95 mEq/L (98-107); Glucose 190 mg/dL (70-105); Osmolality,Calculated 288 (280-300); Potassium 3.8 mEq/L (3.5-5.1); Sodium 137 mEq/L (136-145); eGFR For African Americans > 60 (> 60); eGFR For Non-African Americans > 60 (> 60)
[2019-04-14 12:09] LABS: Troponin I < 0.03 ng/mL (< 0.04)
[2019-04-14] MEDS ORDERED: [UNRECOGNIZED DRUG - OTHER] NS PRN (13:26)
[2019-04-14] MEDS ORDERED: *HR* Dextrose 50 % in Water (Vial) 50 ML VIAL IVP PRN (13:26)
[2019-04-14] MEDS ORDERED: Dextrose Gel 15 GM/37.5 ML TUBE PO PRN ×2 (13:26)
[2019-04-14] MEDS ORDERED: Ondansetron ODT 4 MG TAB.RAPDIS SL PRN (13:26)
[2019-04-14] MEDS ORDERED: Albuterol 2.5 MG/3 ML NEBULIZER IH PRN (13:26)
[2019-04-14] MEDS ORDERED: Nitroglycerin 0.4 MG TAB.SUBL SL PRN (13:26)
[2019-04-14] MEDS ORDERED: MOM Conc 10 ML UD.LIQ PO PRN (13:26)
[2019-04-14] MEDS ORDERED: D5% in Water 1,000 ML IVC PRN (13:26)
[2019-04-14] MEDS ORDERED: Naloxone 0.4 MG/ML INJ IVP PRN (13:26)
[2019-04-14] MEDS ORDERED: Mag Hydrox/Al Hydrox/Simeth 30 ML UDC PO PRN (13:26)
[2019-04-14] MEDS ORDERED: Azithromycin 500 MG in D5% in Water 250 ML IVPB SCH (15:00)
[2019-04-14] MEDS ORDERED: cefTRIAXone 1,000 MG in Water for inj. (sterile) 10 ML IVP SCH (15:00)
[2019-04-14] MEDS: Insulin LISPRO 300 UNITS/3 ML VIAL SQ SCH (18:04)
[2019-04-14] MEDS: Furosemide 20 MG/2 ML VIAL IVP SCH (18:04)
[2019-04-14] MEDS ORDERED: Acetaminophen 325 MG TABLET PO PRN (20:26)
[2019-04-14] MEDS: clonazePAM 0.5 MG TABLET PO SCH (20:57)
[2019-04-14] MEDS: traZODone 50 MG TABLET PO SCH (20:57)
[2019-04-14] MEDS: Apixaban 5 MG TABLET PO SCH (20:57)
[2019-04-14] MEDS: Lactobacillus 1 EACH CAP.SPRINK PO SCH (20:57)
[2019-04-14] MEDS: OXcarbazepine 150 MG TABLET PO SCH (20:57)
[2019-04-14] MEDS: Budesonide/Formoterol 160/4.5 1 PUFF INH IH SCH (22:38)
[2019-04-15] MEDS ORDERED: Bumetanide 1 MG TABLET PO SCH (09:00)
[2019-04-15] MEDS: Budesonide/Formoterol 160/4.5 1 PUFF INH IH SCH ×2 (10:23→21:47)
[2019-04-15] MEDS: Insulin LISPRO 300 UNITS/3 ML VIAL SQ SCH ×3 (10:53→17:55)
[2019-04-15] MEDS: Furosemide 20 MG/2 ML VIAL IVP SCH ×2 (10:54→17:57)
[2019-04-15] MEDS: *HR* Glimepiride 2 MG TABLET PO SCH (10:54)
[2019-04-15] MEDS: OXcarbazepine 150 MG TABLET PO SCH ×2 (10:55→20:41)
[2019-04-15] MEDS: DALIRESP PO SCH (10:55)
[2019-04-15] MEDS: clonazePAM 0.5 MG TABLET PO SCH ×2 (10:55→20:41)
[2019-04-15] MEDS: Apixaban 5 MG TABLET PO SCH ×2 (10:55→20:41)
[2019-04-15] MEDS: Finasteride 5 MG TABLET PO SCH (10:55)
[2019-04-15] MEDS: Ascorbic Acid 500 MG TABLET PO SCH (10:55)
[2019-04-15] MEDS: Lactobacillus 1 EACH CAP.SPRINK PO SCH ×2 (10:55→20:41)
[2019-04-15] MEDS: Isosorbide MONOnitrate (24 HR) 60 MG TAB.ER.24H PO SCH (10:55)
[2019-04-15] MEDS: Aspirin Enteric Coated 81 MG Tablet PO SCH (10:55)
[2019-04-15] MEDS: Cholecalciferol (D-3) 1,000 UNIT (25MCG) TABLET PO SCH (10:56)
--- NOTE | 2019-04-15 11:11 | Internal Med History&Physical ---
Date of Encounter: 04/15/19 Time of Encounter: 10:45 Assessment and Plan (1) Acute bronchitis Current visit: Yes Status: Acute Chest x-ray showed no pneumonia. Pro-calcitonin will be checked. Robitussin-DM will be scheduled. Qualifiers: Bronchitis organism: unspecified organism Qualified Code(s): J20.9 - Acute bronchitis, unspecified (2) Paroxysmal atrial fibrillation Current visit: No Status: Chronic Continue Eliquis and sotalol (3) DM type 2 (diabetes mellitus, type 2) Current visit: No Status: Chronic Hemoglobin A1c was 7.3% on 01/03/2019. Recheck in a.m. Continue Amaryl and Accu-Cheks with SSI. He cannot tolerate metformin due to GI upset side effects. 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 Continue to observe off medication. Qualifiers: Gout site: unspecified site Gout etiology: unspecified cause Chronicity: chronic Presence of tophus: without tophus Qualified Code(s): M1A.9XX0 - Chronic gout, unspecified, without tophus (tophi) (5) Anemia Current visit: No Status: Acute Hemoglobin significantly improved to 12.1 from previous visits. Continue supplemental ferrous sulfate with ascorbic acid. Qualifiers: Anemia type: iron deficiency Iron deficiency anemia type: unspecified iron deficiency Qualified Code(s): D50.9 - Iron deficiency anemia, unspecified (6) Hypertension Current visit: No Status: Chronic Continue Lasix, Imdur, and Betapace Qualifiers: Hypertension type: essential hypertension Qualified Code(s): I10 - Essential (primary) hypertension (7) Congestive heart failure Current visit: Yes Status: Acute Continue Lasix, Imdur, and Betapace. Qualifiers: Heart failure type: unspecified Heart failure chronicity: acute on chronic Qualified Code(s): I50.9 - Heart failure, unspecified Internal Medicine - H&P: HPI Chief complaint: Dyspnea Admitted From: Emergency Dept Plans for Post Hospital Care: Home History of present illness: Mr. Ogden is a 83 year old male who came to emergency room stating he awakened at 0200 morning of admission with dyspnea. He reports cough with production of minimal quantity of "pale pink" sputum. He had sensation of fevers and chills but denies vomiting or diarrhea. He did not respond to nebulizer treatments at the SNF so was transported to emergency room. He was evaluated and was felt to have exacerbation of heart failure. He was admitted to [facility] floor for ongoing care needs. He has history of hypertension and known ASHD status post 3 vessel CABG 1980 and 4 vessel CABG 1996. He had PTCA with single stent placed 2005. Most recent heart catheter was November 2016 at [facility] without intervention done. He was told he had adequate collaterals. He has history of atrial fib/flutter and was cardioverted October 2015 at [facility] and was initially given Xarelto. He states Xarelto was discontinued during a September 2017 hospitalization in [place] for congestive heart failure and pneumonia. He is now on Eliquis and every other day aspirin. He reports a permanent pacemaker was placed May 2018 at [facility]. He had a left carotid endarterectomy in 2014. He denies [place] or pulmonary embolus. He reports he had a DVT in his left ankle 2017. Echocardiogram 02/28/2019 showed technically challenging echo images but grossly normal LV systolic function. There was indeterminate diastolic function. There was mild tricuspid regurgitation and mild pulmonary hypertension reported with estimated RVSP 38 mmHg. The interventricular septum and posterior wall thickness measurements were 1.00 cm each. There was LAE at 4.60 cm. Past Med Surg Social Fam HX - Past Medical History Medical history: atrial fibrillation, CHF, COPD, coronary artery disease, CVA, diabetes, GERD, hyperlipidemia, hypertension Additional medical history: HAD A NOSE BLEED WHILE HE WAS IN [place] WHICH WAS C AUTERIZED. HAD AN EPISODE THIS PM. MULTIPLE CARDIAC BYPASSES, SEVERAL CARDIAC STENTS. bph Psychiatric history: anxiety - Past Surgical History Surgical History: angioplasty/stent, cholecystectomy, coronary bypass (CABG), herniorrhaphy, prostatectomy, pacemaker Additional surgical history: Prostate surgery x 2 - Social History Smoking Status: Never smoker Smokeless Tobacco Status: No Alcohol use: none Drug use: none - Family History Father Family Member Ethnicity: Non- Living Status: Mother Family Member Ethnicity: Non- Living Status: Hx Family Cardiac Disorders: Yes Hx Family Neurologic Disorders: Yes Internal Medicine - H&P: Meds Atorvastatin [Lipitor] 40 mg PO HS 10/11/15 [History] Finasteride [Proscar] 5 mg PO DAILY 10/11/15 [History] Glimepiride [Amaryl] 1 mg PO DAILY 10/11/15 [History] Montelukast [Singulair] 10 mg PO DAILY 10/11/15 [History] Nitroglycerin [Nitrostat] 0.4 mg PO Q5-6MIN PRN 07/15/17 [History] Roflumilast [Daliresp] 500 mcg PO DAILY 07/15/17 [History] Potassium Chloride 20 meq PO DAILY 03/02/18 [History] Sotalol [Betapace] 80 mg PO Q12HR 03/02/18 [History] Dulera 200 Mcg/5 Mcg Inhaler 1 puff IH BID 05/24/18 [History] OXcarbazepine [Trileptal] 150 mg PO BID 05/24/18 [History] clonazePAM [Clonazepam] 0.25 mg PO BID 05/24/18 [History] Trazodone HCl 100 mg PO HS #30 tablet 05/25/18 [Rx] Apixaban [Eliquis] 5 mg PO BID 12/28/18 [History] Ferrous Sulfate [Iron] 325 mg PO DAILY 12/28/18 [History] Pantoprazole Sodium [Protonix] 20 mg PO DAILY PRN #0 12/29/18 [Rx] Cholecalciferol (Vitamin D3) [Vitamin D3] 1,000 unit PO DAILY 02/14/19 [History] Sertraline [Zoloft] 50 mg PO DAILY 02/14/19 [History] Isosorbide MONOnitrate (24 HR) [Imdur] 120 mg PO DAILY tab.er.24h 03/01/19 [Rx] Bumetanide [Bumex] 2 mg PO DAILY 03/11/19 [History] Albuterol Neb [AccuNeb] 0.63 mg IH QID PRN 04/14/19 [History] Ascorbic Acid [Vitamin C] 500 mg PO DAILY 04/14/19 [History] Aspirin [Lo-Dose Aspirin EC] 81 mg PO DAILY 04/14/19 [History] Sodium Chloride/Sodium Bicarb [Nasa Mist Saline [place]] 2 spray NS PRN PRN 04/14 [History] Allergy/AdvReac Type Severity Reaction Status Date / Time No Known Allergies Allergy Verified 02/14/19 09:27 All Systems PM: A 10-system review of systems was performed and is negative for pertinent findings except as documented above in the HPI. Review of systems: Review of systems from February 2019 [facility] hospitalization were reviewed and revised as below. Gen.: His weight has fluctuated from approximately 96 kg at the November 2015 [facility] hospitalization to 91.824 kg at present Cardiovascular: As per history of present illness Respiratory: He smoked from age [age] up to 2 packs per day. He had pulmonary function tests December 2015 which showed severe COPD. FEV1/FVC was 50%. His FEV1 had significant improvement postbronchodilator. He had elevated RV consistent with air trapping. His DLCO was 28% corrected. He uses supplemental oxygen at assisted living as needed. GI: He has had cholecystectomy. He has GERD but denies disorders of his liver or exocrine pancreas. He has had bilateral inguinal hernia repair. He had EGD, colonoscopy, and capsule endoscopy October 2017 in [place] for blood loss anemia. He states no pathology was found to explain the blood loss. : He has had stones in his kidney and bladder in the past. He has BPH. 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 He denies other large distribution strokes or seizures. He has benign essential tremor. Endocrine: He was diagnosed with DM 2 approximately 1984. Hemoglobin A1c was 7.4% on 12/25/2018. He has hyperlipidemia but no known thyroid disease Hematology/oncology: He denies blood disorders cancers or anemia Psychiatric: He was hospitalized at [facility] early 2017 for anxiety and depression. [place] skeletal: Has history of gout but denies other bone joint or muscle disorders. - Constitutional Vitals: Temp Pulse Resp BP Pulse Ox 97.5 F L 81 18 109/64 98 04/15/19 06:00 04/15/19 06:00 04/15/19 10:23 04/15/19 06:00 04/15/19 10:23 Exam: Gen.: He is a well-developed well-nourished male resting comfortably in bed who appears slightly dyspneic and has occasional cough HEENT: Head is atraumatic and normocephalic. Eyes: EOMI. There is no scleral icterus. Mouth: Mucosa is moist. Neck: There is no thyromegaly or adenopathy noted. Heart: Regular without murmurs gallops or ectopics Lungs: He has equivocal egophony in the left posterior mid lung field. No expiratory wheezing or inspiratory crackles are heard Abdomen: Soft and nontender. No masses or guarding are noted. Extremities: There is no cyanosis edema or clubbing noted. Dorsalis pedis and posterior tibial pulses are trace to 1+ palpable bilaterally. Neurologic: Mental status: He is talkative and a good historian. He has hoarseness of voice quality. Cranial nerves: Smile is symmetric. Forehead wrinkles bilaterally. Tongue protrudes midline. EOMI. Motor: There is no pronator drift. Cerebellar: Finger to nose is intact bilaterally. Skin: Warm and dry Internal Med - H&P Results - Labs CBC & Chem 7: 04/14/19 11:44 04/14/19 11:44 Labs: Short CBC 04/14/19 Range/Units 11:44 WBC 11.3 H (4.3-11.1) K/mcL Hgb 12.1 L (12.9-16.9) g/dL Hct 38.7 (37.5-50.1) % Plt Count 204 (140-400) K/mcL Neutrophils # 9.4 H (1.6-8.9) K/mcL BMP 04/14/19 11:44 Sodium 137 Potassium 3.8 Chloride 95 L Carbon Dioxide 36 H BUN 10 Creatinine 0.73 Glucose 190 H Calcium 9.5 Cardiac Enzymes 04/14/19 Range/Units 11:44 Troponin I < 0.03 (< 0.04) ng/mL - Impressions ITS Impressions Chest X-Ray 04/14/19 11:27 IMPRESSION: Mild congestive heart failure. D/ / Annabella Girard MD / Annabella Girard MD Interpreting Provider: Annabella Girard MD
[2019-04-15] MEDS: traZODone 50 MG TABLET PO SCH (20:41)
[2019-04-16] MEDS: Insulin LISPRO 300 UNITS/3 ML VIAL SQ SCH ×3 (08:37→17:09)
--- NOTE | 2019-04-16 08:49 | Electrocardiograph Report ---
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
[2019-04-16] MEDS: Lactobacillus 1 EACH CAP.SPRINK PO SCH ×2 (09:26→20:08)
[2019-04-16] MEDS: *HR* Glimepiride 2 MG TABLET PO SCH (09:26)
[2019-04-16] MEDS: Aspirin Enteric Coated 81 MG Tablet PO SCH (09:26)
[2019-04-16] MEDS: Cholecalciferol (D-3) 1,000 UNIT (25MCG) TABLET PO SCH (09:26)
[2019-04-16] MEDS: Finasteride 5 MG TABLET PO SCH (09:26)
[2019-04-16] MEDS: Apixaban 5 MG TABLET PO SCH ×2 (09:26→20:09)
[2019-04-16] MEDS: Ascorbic Acid 500 MG TABLET PO SCH (09:27)
[2019-04-16] MEDS: Furosemide 20 MG/2 ML VIAL IVP SCH ×2 (09:27→17:47)
[2019-04-16] MEDS: Isosorbide MONOnitrate (24 HR) 60 MG TAB.ER.24H PO SCH (09:27)
[2019-04-16] MEDS: DALIRESP PO SCH (09:27)
[2019-04-16] MEDS: OXcarbazepine 150 MG TABLET PO SCH ×2 (09:27→20:08)
[2019-04-16] MEDS: clonazePAM 0.5 MG TABLET PO SCH ×2 (10:06→20:54)
[2019-04-16] MEDS: Budesonide/Formoterol 160/4.5 1 PUFF INH IH SCH ×2 (10:14→21:46)
[2019-04-16 10:56] LABS: Estimated Average Glucose 137 mg/dl
--- NOTE | 2019-04-16 11:04 | Internal Med Progress Note ---
Date of Encounter: 04/16/19 Time of Encounter: 10:55 - Assessment and plan (1) Acute bronchitis Current Visit: Yes Status: Acute Assessment and plan: April 16. Pro-calcitonin level < 0.02. Likely viral bronchitis. Continue sympt omatic treatment. Anticipate discharge tomorrow if stable. Qualifiers: Bronchitis organism: unspecified organism Qualified Code(s): J20.9 - Acute bronchitis, unspecified (2) Paroxysmal atrial fibrillation Current Visit: No Status: Chronic Assessment and plan: April 16. Continue Eliquis and sotalol (3) DM type 2 (diabetes mellitus, type 2) Current Visit: No Status: Chronic Assessment and plan: April 16. Hemoglobin A1c 6.4%. Continue present Rx. 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 Uric acid level was 5.2 on 01/26/2019. Continue to observe off medication. Qualifiers: Gout site: unspecified site Gout etiology: unspecified cause Chronicity: chronic Presence of tophus: without tophus Qualified Code(s): M1A.9XX0 - Chronic gout, unspecified, without tophus (tophi) (5) Anemia Current Visit: No Status: Acute Assessment and plan: April 16. Continue ferrous sulfate with ascorbic acid. Qualifiers: Anemia type: iron deficiency Iron deficiency anemia type: unspecified iron deficiency Qualified Code(s): D50.9 - Iron deficiency anemia, unspecified (6) Hypertension Current Visit: No Status: Chronic Assessment and plan: April 16. Continue Lasix, Imdur, and Betapace Qualifiers: Hypertension type: essential hypertension Qualified Code(s): I10 - Essentia l (primary) hypertension (7) Congestive heart failure Current Visit: Yes Status: Acute Assessment and plan: April 16. Continue Lasix, Imdur, and Betapace Qualifiers: Heart failure type: unspecified Heart failure chronicity: acute on chronic Qualified Code(s): I50.9 - Heart failure, unspecified - Subjective Interval history: April 16. He has no new complaints. He states he feels "groggy" and cannot focus his thoughts. He is still dyspneic. - Constitutional Vitals: Temp Pulse Resp BP Pulse Ox 100.5 F H 90 16 122/70 92 04/16/19 06:59 04/16/19 06:59 04/16/19 10:14 04/16/19 06:59 04/16/19 10:14 Exam: He is resting in bed and appears in no acute distress. His voice is still slig htly hoarse. He is able to converse appropriately but does appear slightly groggy. I reviewed his vitals and medications. Internal Medicine: Result - Labs CBC & Chem 7: 04/14/19 11:44 04/14/19 11:44 - ABG Interpretation ABG results: PT/INR, D-dimer PT 17.8 Seconds (9.4-12.1) H 04/14/19 11:44 Consult Discharge Plan - Plan Referrals: Dorian Cole MD [Primary Care Provider] - 1 week
[2019-04-16] MEDS: traZODone 50 MG TABLET PO SCH (20:08)
[2019-04-17 06:32] VITALS: BP 126/70
[2019-04-17] MEDS: Insulin LISPRO 300 UNITS/3 ML VIAL SQ SCH (07:19)
[2019-04-17] MEDS: Aspirin Enteric Coated 81 MG Tablet PO SCH (09:25)
[2019-04-17] MEDS: *HR* Glimepiride 2 MG TABLET PO SCH (09:25)
[2019-04-17] MEDS: Cholecalciferol (D-3) 1,000 UNIT (25MCG) TABLET PO SCH (09:25)
[2019-04-17] MEDS: Apixaban 5 MG TABLET PO SCH (09:26)
[2019-04-17] MEDS: Isosorbide MONOnitrate (24 HR) 60 MG TAB.ER.24H PO SCH (09:26)
[2019-04-17] MEDS: Finasteride 5 MG TABLET PO SCH (09:26)
[2019-04-17] MEDS: DALIRESP PO SCH (09:27)
[2019-04-17] MEDS: Furosemide 20 MG/2 ML VIAL IVP SCH (09:27)
[2019-04-17] MEDS: OXcarbazepine 150 MG TABLET PO SCH (09:27)
[2019-04-17] MEDS: Lactobacillus 1 EACH CAP.SPRINK PO SCH (09:27)
[2019-04-17] MEDS: Ascorbic Acid 500 MG TABLET PO SCH (09:27)
--- NOTE | 2019-04-17 10:26 | Discharge Summary ---
Orders not resulted at time of discharge: Pending orders 04/14/19 11:48 Culture,Blood [BC] Stat Date of Encounter: 04/17/19 Time of Encounter: 10:15 - Discharge Diagnosis (1) Acute bronchitis Priority: Primary Status: Acute Qualifiers: Bronchitis organism: unspecified organism Qualified Code(s): J20.9 - Acute bronchitis, unspecified (2) Paroxysmal atrial fibrillation Priority: Secondary Status: Chronic (3) DM type 2 (diabetes mellitus, type 2) Priority: Secondary Status: Chronic Qualifiers: Diabetes mellitus residential insulin use: without residential use Diabetes mellitus complication status: without complication Qualified Code(s): E11.9 - Type 2 diabetes mellitus without complications (4) Gout Priority: Secondary Status: Chronic Qualifiers: Gout site: unspecified site Gout etiology: unspecified cause Chronicity: chronic Presence of tophus: without tophus Qualified Code(s): M1A.9XX0 - Chronic gout, unspecified, without tophus (tophi) (5) Anemia Priority: Secondary Status: Acute Qualifiers: Anemia type: iron deficiency Iron deficiency anemia type: unspecified iron deficiency Qualified Code(s): D50.9 - Iron deficiency anemia, unspecified (6) Hypertension Priority: Secondary Status: Chronic Qualifiers: Hypertension type: essential hypertension Qualified Code(s): I10 - Essential (primary) hypertension (7) Congestive heart failure Priority: Secondary Status: Chronic Qualifiers: Heart failure type: diastolic Heart failure chronicity: acute on chronic Qualified Code(s): I50.33 - Acute on chronic diastolic (congestive) heart failure Hospital course: Mr. Ogden is a 83 year old male who came to emergency room stating he awakened at 0200 morning of admission with dyspnea. He reports cough with production of minimal quantity of "pale pink" sputum. He had sensation of fevers and chills but denies vomiting or diarrhea. He did not respond to nebulizer treatments at the [facility] so was transported to emergency room. He was evaluated and was felt to have exacerbation of heart failure. He was admitted to [facility] floor for ongoing care needs. Initial orders were written by the emergency room physician. I saw him on April 15 and performed the history and physical. He was given antibiotics in emergency room. Pro-calcitonin level returned < 0.02 so antibiotics were not continued. He remained clinically stable. There were no new problems and I felt he was stable for discharge back to his assisted living apartment at [facility] on April 17. He will follow with me. - Time Spent with Patient Total time spent providing and/or coordinating discharge services: - Discharge Medications Prescriptions: New GuaiFENesin/Dextromethorphan [Robitussin/Dm] 10 ml PO Q6HR PRN 5 Days udc PRN Reason: Cough Continued Montelukast [Singulair] 10 mg PO DAILY Atorvastatin [Lipitor] 40 mg PO HS Glimepiride [Amaryl] 1 mg PO DAILY Finasteride [Proscar] 5 mg PO DAILY Nitroglycerin [Nitrostat] 0.4 mg PO Q5-6MIN PRN PRN Reason: Chest Pain Roflumilast [Daliresp] 500 mcg PO DAILY Potassium Chloride 20 meq PO DAILY Sotalol [Betapace] 80 mg PO Q12HR OXcarbazepine [Trileptal] 150 mg PO BID Dulera 200 Mcg/5 Mcg Inhaler 1 puff IH BID Trazodone HCl 100 mg PO HS #30 tablet Apixaban [Eliquis] 5 mg PO BID Ferrous Sulfate [Iron] 325 mg PO DAILY Pantoprazole Sodium [Protonix] 20 mg PO DAILY PRN #0 PRN Reason: Dyspepsia Sertraline [Zoloft] 50 mg PO DAILY Cholecalciferol (Vitamin D3) [Vitamin D3] 1,000 unit PO DAILY Isosorbide MONOnitrate (24 HR) [Imdur] 120 mg PO DAILY tab.er.24h Bumetanide [Bumex] 2 mg PO DAILY Sodium Chloride/Sodium Bicarb [[place]asa Mist Saline [place]] 2 spray NS PRN PRN PRN Reason: Epistaxis Ascorbic Acid [Vitamin C] 500 mg PO DAILY Changed Albuterol Neb [AccuNeb] 2.5 mg IH QID PRN #0 PRN Reason: Shortness Of Breath clonazePAM [Clonazepam] 0.25 mg PO BID PRN #0 PRN Reason: Anxiety Aspirin [Lo-Dose Aspirin EC] 81 mg PO Q48H #0 Home Medications: Atorvastatin [Lipitor] 40 mg PO HS 10/11/15 [History] Finasteride [Proscar] 5 mg PO DAILY 10/11/15 [History] Glimepiride [Amaryl] 1 mg PO DAILY 10/11/15 [History] Montelukast [Singulair] 10 mg PO DAILY 10/11/15 [History] Nitroglycerin [Nitrostat] 0.4 mg PO Q5-6MIN PRN 07/15/17 [History] Roflumilast [Daliresp] 500 mcg PO DAILY 07/15/17 [History] Potassium Chloride 20 meq PO DAILY 03/02/18 [History] Sotalol [Betapace] 80 mg PO Q12HR 03/02/18 [History] Dulera 200 Mcg/5 Mcg Inhaler 1 puff IH BID 05/24/18 [History] OXcarbazepine [Trileptal] 150 mg PO BID 05/24/18 [History] Trazodone HCl 100 mg PO HS #30 tablet 05/25/18 [Rx] Apixaban [Eliquis] 5 mg PO BID 12/28/18 [History] Ferrous Sulfate [Iron] 325 mg PO DAILY 12/28/18 [History] Pantoprazole Sodium [Protonix] 20 mg PO DAILY PRN #0 12/29/18 [Rx] Cholecalciferol (Vitamin D3) [Vitamin D3] 1,000 unit PO DAILY 02/14/19 [History] Sertraline [Zoloft] 50 mg PO DAILY 02/14/19 [History] Isosorbide MONOnitrate (24 HR) [Imdur] 120 mg PO DAILY tab.er.24h 03/01/19 [Rx] Bumetanide [Bumex] 2 mg PO DAILY 03/11/19 [History] Ascorbic Acid [Vitamin C] 500 mg PO DAILY 04/14/19 [History] Sodium Chloride/Sodium Bicarb [Nasa Mist Saline [place]] 2 spray NS PRN PRN 04/14/19 [History] Albuterol Neb [AccuNeb] 2.5 mg IH QID PRN #0 04/17/19 [Rx] Aspirin [Lo-Dose Aspirin EC] 81 mg PO Q48H #0 04/17/19 [Rx] GuaiFENesin/Dextromethorphan [Robitussin/Dm] 10 ml PO Q6HR PRN 5 Days udc 04/17/19 [Rx] clonazePAM [Clonazepam] 0.25 mg PO BID PRN #0 04/17/19 [Rx] Allergies/Adverse Reactions: Allergy/AdvReac Type Severity Reaction Status Date / Time No Known Allergies Allergy Verified 02/14/19 09:27 Date of admission: 04/14/19 13:15 Primary care physician: Dorian Cole MD Consults: 04/14/19 14:30 Consult to Paramedic Rn [CONS] Routine Reason for SW Consult: DC Planning - Constitutional Vitals: Temp Pulse Resp BP Pulse Ox 98.3 F 90 22 126/70 96 04/17/19 06:29 04/17/19 06:29 04/17/19 06:29 04/17/19 06:29 04/17/19 06:29 - Patient Status Disposition: Home, Self-Care Condition: Fair - Discharge Instructions Follow Up With: Dorian Cole MD [Primary Care Provider] - 1 week - Diet and Activity Activity: resume usual activities as tolerated Diet: advance to your usual diet
[2019-04-17] MEDS: Budesonide/Formoterol 160/4.5 1 PUFF INH IH SCH (10:30)
== END 2019-04-17 12:25 | disposition home or self-care (01) ==
LOC: EMEROOPIK 11:21 → INPPIK 11:21
PROVIDERS: ADMIT Internal Medicine; ATTEND Internal Medicine

== ENCOUNTER 2019-12-29 21:06 | Observation (INO) ==
[2019-12-29] MEDS ORDERED: Albuterol 2.5 MG/3 ML NEBULIZER IH ONE (21:09)
[2019-12-29] MEDS ORDERED: methylPREDNISolone 125 MG/2 ML VIAL IVP ONE (21:09)
[2019-12-29] MEDS ORDERED: Ipratropium/Albuterol Neb 3 ML IH ONE (21:09)
[2019-12-29] MEDS ORDERED: Furosemide 20 MG/2 ML VIAL IVP ONE (21:16)
[2019-12-29 21:33] LABS: Basophils % 0.4 %; Eosinophils # 0.1 K/mcL (0.0-0.6); Eosinophils % 1.1 %; Hematocrit 31.7 % (37.5-50.1); Hemoglobin 9.8 g/dL (12.9-16.9); Immature Granulocytes % 0.4 % (0-4); Lymphocytes % 12.8 %; Mean Corpuscular HGB Conc 30.9 g/dL (31.6-35.5); Mean Corpuscular Hemoglobin 24.9 pg (28.0-33.3); Mean Corpuscular Volume 80.5 fL (83.0-100.0); Mean Platelet Volume 9.5 fL (9.4-12.4); Monocytes # 0.9 K/mcL (0.0-1.3); Monocytes % 11.7 %; Neutrophils # 5.9 K/mcL (1.6-8.9); Platelet Count 182 K/mcL (140-400); Red Blood Count 3.94 M/mcL (4.19-5.50); Segmented Neutrophils % 73.6 %
[2019-12-29 21:41] LABS: INR 1.8; Prothrombin Time 20.5 Seconds (9.4-12.1)
[2019-12-29 21:52] LABS: Alanine Aminotransferase 10 Units/L (7-52); Albumin/Globulin Ratio 1.4 (1.1-2.2); Alkaline Phosphatase 110 Units/L (34-104); Aspartate Amino Transferase 15 Units/L (13-39); BUN/Creatinine Ratio 13 (6-26); Bilirubin,Direct 0.1 mg/dL (0.0-0.2); Bilirubin,Indirect 0.4 mg/dL (0.0-1.0); Bilirubin,Total 0.5 mg/dL (0.3-1.0); Blood Urea Nitrogen 11 mg/dL (8-23); Calcium 8.9 mg/dL (8.6-10.3); Carbon Dioxide 33 mEq/L (23-29); Globulin 2.8 g/dL (2.4-3.5); Total Protein 6.8 g/dL (6.4-8.9); Troponin I < 0.03 ng/mL (< 0.04); eGFR For African Americans > 60 (> 60); eGFR For Non-African Americans > 60 (> 60)
[2019-12-29 22:01] LABS: Chloride 95 mEq/L (98-107); Glucose 179 mg/dL (70-105); Osmolality,Calculated 288 (280-300); Potassium 3.6 mEq/L (3.5-5.1); Sodium 137 mEq/L (136-145)
[2019-12-29] MEDS ORDERED: cefTRIAXone 1,000 MG in Water for inj. (sterile) 10 ML IVP SCH (22:10)
[2019-12-29] MEDS ORDERED: Naloxone 0.4 MG/ML INJ IVP PRN ×2 (22:34→23:00)
[2019-12-29] MEDS ORDERED: cefTRIAXone 1,000 MG in Water for inj. (sterile) 10 ML IVP ONE (22:45)
[2019-12-29] MEDS ORDERED: clonazePAM 0.5 MG TABLET PO PRN (23:00)
[2019-12-29] MEDS: traZODone 50 MG TABLET PO SCH (23:55)
[2019-12-30] MEDS ORDERED: Ipratropium/Albuterol Neb 3 ML IH SCH
[2019-12-30] MEDS: Ipratropium/Albuterol Neb 3 ML IH SCH ×6 (00:34→20:09)
[2019-12-30] MEDS ORDERED: D5% in Water 1,000 ML IVC PRN (08:05)
[2019-12-30] MEDS ORDERED: Dextrose Gel 15 GM/37.5 ML TUBE PO PRN ×2 (08:05)
[2019-12-30] MEDS ORDERED: *HR* Dextrose 50 % in Water (Vial) 50 ML VIAL IVP PRN (08:05)
[2019-12-30] MEDS: Isosorbide MONOnitrate (24 HR) 60 MG TAB.ER.24H PO SCH (08:53)
[2019-12-30] MEDS: OXcarbazepine 150 MG TABLET PO SCH ×2 (08:53→20:19)
[2019-12-30] MEDS: Apixaban 5 MG TABLET PO SCH ×2 (08:53→20:19)
[2019-12-30] MEDS: cefTRIAXone 1,000 MG in Water for inj. (sterile) 10 ML IVP SCH (08:53)
[2019-12-30] MEDS: Finasteride 5 MG TABLET PO SCH (08:53)
[2019-12-30] MEDS: Ascorbic Acid 500 MG TABLET PO SCH (08:53)
[2019-12-30] MEDS: Roflumilast [Daliresp] 500 MCG PO SCH (08:54)
[2019-12-30] MEDS: Azithromycin 500 MG in 0.9 % Sodium Chloride 250 ML IVPB SCH (08:54)
[2019-12-30] MEDS: Bumetanide 1 MG TABLET PO SCH (08:54)
[2019-12-30] MEDS: MethylPREDNISolone 40 MG/ML VIAL IVP SCH ×2 (08:54→20:21)
[2019-12-30] MEDS ORDERED: *HR* Glimepiride 2 MG TABLET PO SCH (09:00)
[2019-12-30] MEDS ORDERED: MethylPREDNISolone 40 MG/ML VIAL IVP SCH (09:00)
[2019-12-30] MEDS ORDERED: cefTRIAXone 1,000 MG in Water for inj. (sterile) 10 ML IVP SCH (09:00)
[2019-12-30] MEDS: Insulin LISPRO 300 UNITS/3 ML VIAL SQ SCH ×3 (09:17→17:11)
[2019-12-30 09:43] LABS: Hematocrit 29.3 % (37.5-50.1); Hemoglobin 9.2 g/dL (12.9-16.9); Mean Corpuscular HGB Conc 31.4 g/dL (31.6-35.5); Mean Corpuscular Hemoglobin 25.1 pg (28.0-33.3); Mean Corpuscular Volume 79.8 fL (83.0-100.0); Mean Platelet Volume 9.5 fL (9.4-12.4); Platelet Count 175 K/mcL (140-400); Red Blood Count 3.67 M/mcL (4.19-5.50); Red Cell Distribution Width 15.9 % (11.5-14.5); White Blood Count 4.8 K/mcL (4.3-11.1)
[2019-12-30 09:51] LABS: Bilirubin,Urine Negative (Negative); Blood,Urine Negative (Negative); Clarity,Urine Clear (Clear); Color,Urine Yellow (Yellow); Glucose,Urine (UA) Normal (Normal); Ketones,Urine Negative (Negative); Leukocyte Esterase,Urine Negative (Negative); Nitrite,Urine Negative (Negative); PH,Urine 5.5 pH Units (5.0-8.0); Protein,Urine Negative (Neg-Trace); Specific Gravity,Urine >= 1.030 (1.010-1.025); Urobilinogen,Urine Normal (Normal)
[2019-12-30 09:58] LABS: BUN/Creatinine Ratio 16 (6-26); Blood Urea Nitrogen 12 mg/dL (8-23); Calcium 8.9 mg/dL (8.6-10.3); Carbon Dioxide 33 mEq/L (23-29); Chloride 95 mEq/L (98-107); Glucose 228 mg/dL (70-105); Osmolality,Calculated 291 (280-300); Potassium 3.7 mEq/L (3.5-5.1); Sodium 137 mEq/L (136-145); eGFR For African Americans > 60 (> 60); eGFR For Non-African Americans > 60 (> 60)
[2019-12-30] MEDS: traZODone 50 MG TABLET PO SCH (20:20)
[2019-12-30] MEDS ORDERED: Insulin LISPRO 300 UNITS/3 ML VIAL SQ SCH (21:00)
[2019-12-30 23:19] LABS: Adenovirus Not Detected (Not Detect); Bordetella Pertussis Not Detected (Not Detect); Chlamydophila pneumoniae Not Detected (Not Detect); Coronavirus 229E Not Detected (Not Detect); Coronavirus HKU1 Not Detected (Not Detect); Coronavirus NL63 Not Detected (Not Detect); Coronavirus OC43 Not Detected (Not Detect); Human Metapneumovirus Not Detected (Not Detect); Human Rhinovirus/Enterovirus DETECTED (Not Detect); Influenza A Subtype 2009 H1 Not Detected (Not Detect); Influenza B Not Detected (Not Detect); Mycoplasma pneumoniae Not Detected (Not Detect); Parainfluenza Virus 1 Not Detected (Not Detect); Parainfluenza Virus 2 Not Detected (Not Detect); Parainfluenza Virus 3 Not Detected (Not Detect); Parainfluenza Virus 4 Not Detected (Not Detect); Respiratory Syncytial Virus Not Detected (Not Detect)
[2019-12-31] MEDS: Ipratropium/Albuterol Neb 3 ML IH SCH ×4 (00:03→12:47)
[2019-12-31 08:05] LABS: Hematocrit 26.7 % (37.5-50.1); Hemoglobin 8.5 g/dL (12.9-16.9); Mean Corpuscular HGB Conc 31.8 g/dL (31.6-35.5); Mean Corpuscular Hemoglobin 25.1 pg (28.0-33.3); Mean Corpuscular Volume 78.8 fL (83.0-100.0); Platelet Count 192 K/mcL (140-400); Red Blood Count 3.39 M/mcL (4.19-5.50); Red Cell Distribution Width 15.8 % (11.5-14.5); White Blood Count 7.2 K/mcL (4.3-11.1)
[2019-12-31] MEDS: Insulin LISPRO 300 UNITS/3 ML VIAL SQ SCH ×2 (08:09→12:23)
[2019-12-31 08:17] LABS: BUN/Creatinine Ratio 23 (6-26); Blood Urea Nitrogen 16 mg/dL (8-23); Calcium 8.9 mg/dL (8.6-10.3); Carbon Dioxide 34 mEq/L (23-29); Chloride 96 mEq/L (98-107); Glucose 188 mg/dL (70-105); Osmolality,Calculated 286 (280-300); Sodium 135 mEq/L (136-145); eGFR For African Americans > 60 (> 60); eGFR For Non-African Americans > 60 (> 60)
[2019-12-31] MEDS: Azithromycin 500 MG in 0.9 % Sodium Chloride 250 ML IVPB SCH (09:13)
[2019-12-31] MEDS: cefTRIAXone 1,000 MG in Water for inj. (sterile) 10 ML IVP SCH (09:14)
[2019-12-31] MEDS: MethylPREDNISolone 40 MG/ML VIAL IVP SCH (09:14)
[2019-12-31] MEDS: Isosorbide MONOnitrate (24 HR) 60 MG TAB.ER.24H PO SCH (09:15)
[2019-12-31] MEDS: Bumetanide 1 MG TABLET PO SCH (09:15)
[2019-12-31] MEDS: Apixaban 5 MG TABLET PO SCH (09:15)
[2019-12-31] MEDS: Ascorbic Acid 500 MG TABLET PO SCH (09:16)
[2019-12-31] MEDS: Finasteride 5 MG TABLET PO SCH (09:16)
[2019-12-31] MEDS: Roflumilast [Daliresp] 500 MCG PO SCH (09:16)
[2019-12-31] MEDS: OXcarbazepine 150 MG TABLET PO SCH (09:16)
[2019-12-31 10:25] VITALS: BP 124/74
== END 2019-12-31 15:20 ==
LOC: INPPIK 21:06 → EMEROOPIK 21:06 → INPPIK 22:51
PROVIDERS: ADMIT Internal Medicine; ATTEND Internal Medicine

== ENCOUNTER 2021-06-02 02:13 | Observation (INO) ==
[2021-06-02 03:05] LABS: Basophils % 0.4 %; Eosinophils % 0.4 %; Hematocrit 22.8 % (37.5-50.1); Hemoglobin 6.8 g/dL (12.9-16.9); Immature Granulocytes % 0.2 % (0-4); Lymphocytes # 0.7 K/mcL (0.6-4.6); Lymphocytes % 12.9 %; Mean Corpuscular HGB Conc 29.8 g/dL (31.6-35.5); Mean Corpuscular Hemoglobin 26.6 pg (28.0-33.3); Mean Corpuscular Volume 89.1 fL (83.0-100.0); Monocytes # 0.2 K/mcL (0.0-1.3); Monocytes % 3.6 %; Neutrophils # 4.4 K/mcL (1.6-8.9); Platelet Count 202 K/mcL (140-400); Red Blood Count 2.56 M/mcL (4.19-5.50); Red Cell Distribution Width 14.2 % (11.5-14.5); Segmented Neutrophils % 82.5 %; White Blood Count 5.4 K/mcL (4.3-11.1)
[2021-06-02 03:09] LABS: BUN/Creatinine Ratio 18 (6-26); Blood Urea Nitrogen 15 mg/dL (8-23); Calcium 8.9 mg/dL (8.6-10.3); Carbon Dioxide 34 mEq/L (23-29); Chloride 97 mEq/L (98-107); Glucose 114 mg/dL (70-105); Osmolality,Calculated 288 (280-300); Potassium 3.9 mEq/L (3.5-5.1); Sodium 138 mEq/L (136-145); eGFR For African Americans > 60 (> 60); eGFR For Non-African Americans > 60 (> 60)
[2021-06-02 03:48] LABS: Bilirubin,Urine Negative (Negative); Blood,Urine Negative (Negative); Clarity,Urine Clear (Clear); Color,Urine Yellow (Yellow); Glucose,Urine (UA) Normal (Normal); Ketones,Urine 15 mg/dL (Negative); Leukocyte Esterase,Urine Negative (Negative); Nitrite,Urine Negative (Negative); Protein,Urine Negative (Neg-Trace); Urobilinogen,Urine Normal (Normal)
[2021-06-02] MEDS ORDERED: Furosemide 20 MG/2 ML VIAL IVP ONE (04:21)
[2021-06-02] MEDS ORDERED: Ondansetron ODT 4 MG TAB.RAPDIS SL PRN (05:45)
[2021-06-02] MEDS ORDERED: clonazePAM 0.5 MG TABLET PO PRN (05:45)
[2021-06-02] MEDS ORDERED: Naloxone 0.4 MG/ML INJ IVP PRN (05:45)
[2021-06-02] MEDS ORDERED: Albuterol Neb 1.25 MG/3 ML VIAL IH PRN (05:45)
[2021-06-02 06:44] LABS: Hematocrit 22.9 % (37.5-50.1); Hemoglobin 6.9 g/dL (12.9-16.9)
[2021-06-02] MEDS ORDERED: (Roflumilast [Daliresp] 500 MCG Tablet) PO SCH (09:00)
[2021-06-02] MEDS: Finasteride 5 MG TABLET PO SCH (09:42)
[2021-06-02] MEDS: Isosorbide MONOnitrate (24 HR) 60 MG TAB.ER.24H PO SCH (09:42)
[2021-06-02] MEDS: Bumetanide 1 MG TABLET PO SCH (09:42)
[2021-06-02] MEDS: *HR* Glimepiride 2 MG TABLET PO SCH (09:42)
[2021-06-02] MEDS: Ascorbic Acid 500 MG TABLET PO SCH (09:43)
[2021-06-02] MEDS: Cholecalciferol (D-3) 1,000 UNIT (25MCG) TABLET PO SCH (09:43)
[2021-06-02] MEDS: OXcarbazepine 150 MG TABLET PO SCH ×2 (09:43→20:34)
[2021-06-02] MEDS ORDERED: Albuterol 2.5 MG/3 ML NEBULIZER AER PRN (09:45)
[2021-06-02] MEDS: Budesonide/Formoterol 160/4.5 1 PUFF INH IH SCH ×2 (10:32→20:21)
[2021-06-02 14:24] LABS: Hematocrit 24.1 % (37.5-50.1); Hemoglobin 7.4 g/dL (12.9-16.9); Mean Corpuscular HGB Conc 30.7 g/dL (31.6-35.5); Mean Corpuscular Hemoglobin 26.4 pg (28.0-33.3); Mean Corpuscular Volume 86.1 fL (83.0-100.0); Mean Platelet Volume 8.9 fL (9.4-12.4); Platelet Count 182 K/mcL (140-400); Red Cell Distribution Width 14.9 % (11.5-14.5); White Blood Count 4.3 K/mcL (4.3-11.1)
[2021-06-02] MEDS ORDERED: 0.9 % Sodium Chloride 250 ML IVC SCH (16:00)
[2021-06-02] MEDS ORDERED: traZODone 50 MG TABLET PO SCH (21:00)
[2021-06-03 06:42] VITALS: BP 103/52
[2021-06-03 07:22] LABS: Hematocrit 25.9 % (37.5-50.1); Hemoglobin 7.9 g/dL (12.9-16.9); Mean Corpuscular HGB Conc 30.5 g/dL (31.6-35.5); Mean Corpuscular Hemoglobin 26.5 pg (28.0-33.3); Mean Corpuscular Volume 86.9 fL (83.0-100.0); Mean Platelet Volume 9.9 fL (9.4-12.4); Platelet Count 186 K/mcL (140-400); Red Blood Count 2.98 M/mcL (4.19-5.50); Red Cell Distribution Width 14.7 % (11.5-14.5); White Blood Count 4.7 K/mcL (4.3-11.1)
[2021-06-03 07:42] LABS: BUN/Creatinine Ratio 18 (6-26); Blood Urea Nitrogen 16 mg/dL (8-23); Calcium 8.5 mg/dL (8.6-10.3); Carbon Dioxide 38 mEq/L (23-29); Chloride 100 mEq/L (98-107); Glucose 105 mg/dL (70-105); Osmolality,Calculated 294 (280-300); Potassium 3.6 mEq/L (3.5-5.1); Sodium 141 mEq/L (136-145); eGFR For African Americans > 60 (> 60); eGFR For Non-African Americans > 60 (> 60)
[2021-06-03] MEDS: Isosorbide MONOnitrate (24 HR) 60 MG TAB.ER.24H PO SCH (09:03)
[2021-06-03] MEDS: Ascorbic Acid 500 MG TABLET PO SCH (09:03)
[2021-06-03] MEDS: Bumetanide 1 MG TABLET PO SCH (09:04)
[2021-06-03] MEDS: *HR* Glimepiride 2 MG TABLET PO SCH (09:04)
[2021-06-03] MEDS: Finasteride 5 MG TABLET PO SCH (09:04)
[2021-06-03] MEDS: OXcarbazepine 150 MG TABLET PO SCH (09:04)
[2021-06-03] MEDS: Cholecalciferol (D-3) 1,000 UNIT (25MCG) TABLET PO SCH (09:05)
[2021-06-03] MEDS: Budesonide/Formoterol 160/4.5 1 PUFF INH IH SCH (10:09)
== END 2021-06-03 12:10 | disposition home or self-care (01) ==
LOC: EMEROOPIK 02:13 → INPPIK 02:13
PROVIDERS: ADMIT Family Medicine; ATTEND Family Medicine